=== PATIENT | male | born 1980 | race American Indian/Alaskan Native ===

== ENCOUNTER 2018-10-09 12:42 | Emergency (ER) | payer SELFPAY ==
--- NOTE | 2018-10-09 13:35 | Emergency Department Report ---
HPI - General Chief Complaint: Altered Mental Status Time Seen by Provider: 10/09/18 13:21 - HPI HPI: 47-year-old -[place] male presents to the emergency department via police department from a [employer] where the patient was acting altered a nd was aggressive towards one of the other patrons. Per the police, the patient actually grabbed a hold of one of the female patrons who was doing her laundry. The patient is currently altered and therefore a poor historian. The patient keeps repeating his name saying "I'm Deejay Maier." He also seems to be fixated with the police captain precinct present talking about and asking questions about nonspecific people shooting themselves in the face and committing suicide. The patient is not answering any questions regarding any past medical history, or any possible alcohol or illicit drug use. ED Past Medical Hx - Past Medical History Additional medical history: Unble to obtain, AMS - Surgical History Additional Surgical History: Unable to obtain, AMS - Social History Smoking Status: Current Every Day Smoker Substance Use Type: Alcohol ED Review of Systems ROS: Stated complaint: 1013 Other details as noted in HPI Comment: Unobtainable due to pts medical conditions Physical Exam - Physical Exam Vital Signs: Vital Signs 10/09/18 13:06 Temperature 98.6 F Pulse Rate 93 H Respiratory 18 Rate Blood Pressure 213/113 O2 Sat by Pulse 99 Oximetry Physical Exam: GENERAL: The patient is well-developed well-nourished. HEENT: Normocephalic. Atraumatic. Patient has moist mucous membranes. EYES: Extraocular motions are intact. Pupils are equal and reactive to light bilaterally. NECK: Supple. Trachea is midline. CHEST/LUNGS: Clear to auscultation. There is no respiratory distress noted. HEART/CARDIOVASCULAR: Regular. There is no tachycardia. There is no obvious murmur. ABDOMEN: Abdomen is soft, nontender. Patient has normal bowel sounds. There is no abdominal distention. SKIN: Skin is warm and dry. NEURO: The patient is awake but is not cooperative. No slurred speech. MUSCULOSKELETAL: There is no tenderness or deformity. There is no limitation range of motion. There is no evidence of acute injury. PSYCH: Patient has pressured speech. He displays tangential thoughts. He is not redirectable. He appears very agitated. ED Course Vital Signs 10/09/18 13:06 Temperature 98.6 F Pulse Rate 93 H Respiratory 18 Rate Blood Pressure 213/113 O2 Sat by Pulse 99 Oximetry ED Medical Decision Making - Lab Data Result diagrams: 10/09/18 13:25 10/09/18 13:25 - EKG Data -: EKG Interpreted by Me EKG shows normal: sinus rhythm, axis, intervals, QRS complexes (LVH), ST-T waves Rate: normal - EKG Data When compared to previous EKG there are: previous EKG unavailable Interpretation: LVH - Medical Decision Making Patient presents in police custody from a [facility] where the patient was d isplaying some psychosis and even some aggression and allegedly grabbed a hold of another patron there. Since being in the emergency department, the patient is awake but does display some agitation and psychosis here as well. He repeatedly will see his full name. He is attempting to have a conversation with the police captain precinct but the contents of this conversation do not make much sense and often he is very tangential and pressured speech. The patient became more agitated throughout his ED course at first and required some chemical restraints. Patient also presented with elevated blood pressure. His urine drug screen came back positive for cocaine, amphetamines and marijuana. I do believe that this is partly the reason for his current symptoms. Patient's blood count shows white blood cell count of 14,000. I believe this is reactive to his current psychotic, substance abused state. Patient also shows some elevation in his liver enzymes with AST almost 3 times greater than ALT and this may be secondary to alcohol use. Once the patient received the chemical restraints, his blood pressure came down to a much more reasonable level. He is currently a 1013 and awaiting psychiatric placement. Patient appears medically cleared for psychiatric placement. - Differential Diagnosis substance abuse, schizophrenia, schizoaffective, bipolar disorder Critical Care Time: No Critical care attestation.: If time is entered above; I have spent that time in minutes in the direct care of this critically ill patient, excluding procedure time. ED Disposition Clinical Impression: Polysubstance abuse, Acute psychosis Disposition: DC/TX-65 PSY HOSP/PSY UNIT Is pt being admited?: No Condition: Stable Time of Disposition: 18:42
[2018-10-09 13:40] LABS: Basophils # (Auto) 0.1 K/mm3 (0.0-0.1); Basophils % (Auto) 0.6 % (0.0-1.8); Eosinophils % (Auto) 0.2 % (0.0-4.3); Lymphocytes # (Auto) 2.5 K/mm3 (1.2-5.4); Lymphocytes % (Auto) 17.4 % (13.4-35.0); Mean Corpuscular HGB Conc 33 % (32-34); Mean Corpuscular Volume 80 fl (84-94); Monocytes # (Auto) 1.3 K/mm3 (0.0-0.8); Platelet Count 244 K/mm3 (140-440); Red Blood Count 4.99 M/mm3 (3.65-5.03); Red Cell Distribution Width 13.9 % (13.2-15.2)
[2018-10-09] MEDS ORDERED: D50W (25GM) Syringe IV ONE (13:48)
[2018-10-09] MEDS ORDERED: APRESOLINE IV ONE (13:48)
[2018-10-09 13:58] LABS: Bilirubin,Urine NEG (Negative); Blood,Urine NEG (Negative); Color,Urine Yellow (Yellow); Mucus,Urine 2+ /HPF
[2018-10-09 14:16] LABS: Benzodiazepines Screen,Urine PRESUMPTIVE NEGATIVE; Methadone Screen,Urine PRESUMPTIVE NEGATIVE; Opiate Screen,Urine PRESUMPTIVE NEGATIVE
[2018-10-09 14:18] LABS: Alanine Aminotransferase 69 units/L (7-56); Albumin 4.4 g/dL (3.9-5); BUN/Creatinine Ratio 14; Blood Urea Nitrogen 13 mg/dL (9-20); Calcium 9.3 mg/dL (8.4-10.2); Hemolysis Index 9
[2018-10-09 14:28] LABS: Amphetamine Screen,Urine PRESUMPTIVE POSITIVE; Cannabinoid Screen,Urine PRESUMPTIVE POSITIVE; Cocaine Screen,Urine PRESUMPTIVE POSITIVE
[2018-10-09] MEDS ORDERED: ATIVAN IV ONE (14:41)
[2018-10-09] MEDS ORDERED: GEODON IM ONE ×2 (15:49→15:53)
[2018-10-09] MEDS ORDERED: WATER FOR INJ Sterile (PF) 10 ML ONE (15:49)
--- NOTE | 2018-10-10 14:27 | Consultation ---
History of Present Illness - Reason for Consult Consult date: 10/10/18 Reason for consult: Initial Psychiatric Evaluation - Chief Complaint Chief complaint: " I had an altercation at my job." - History of Present Psychiatric Illness Patient is a 37-year-old male that presents to the emergency department via police department from a [employer] where the patient was acting altered and was aggressive towards one of the other patrons. Per the police, the patient actually grabbed a hold of one of the female patrons who was doing her laundry. The patient is currently altered and therefore a poor historian. Past denies past psychiatric history. Today the patient is cooperative but anxious during the assessment. He denies SI/HI's, A/VH's, and delusions. He reports alcohol and cocaine abuse. He last used cocaine/alcohol on 10-09-18. Upon arrival, patient endorses verbal aggressiveness. Currently, he denies agitation. Current Psychiatric Medications: Patient denies. Past Psychiatric History: Patient denies psychiatric diagnosis; [facility]; no outpatient psychiatrist; no previous suicide attempts. Past Psychiatric Medication Trials: Patient denies. History of Trauma/Abuse: Patient denies sexual, physical, and mental abuse. History of Drug/ Alcohol Abuse: UDS + marijuana, amphetamines, and cocaine. Cocaine- binge use, $20 dollars, " snort", last use 10-09-18, first use Age 18; Alcohol- 1 beer daily, " drink", last use 10-09-18, first use- age 14; methamphetamine- " I don't do meth. It probably was in a pill. " Social History: 11th grade- highest level of education; single; 1 son- age 17 in [place]; good support system- " the community and my job" Family History of Psychiatric Illness/ Substance Abuse: Patient denies. Medications and Allergies Allergies Allergy/AdvReac Type Severity Reaction Status Date / Time Unable to Assess Allergy Unverified 10/09/18 13:09 Mental Status Exam - Vital signs Last Vital Signs Temp 99.0 F 10/10/18 08:07 Pulse 106 H 10/10/18 08:07 Resp 20 10/10/18 08:07 BP 137/63 10/10/18 08:07 Pulse Ox 99 10/10/18 08:07 - Exam Narrative exam: Mental Status Exam Appearance: dressed- hospital gown Behavior: regular eye contact Speech: normal rate and tone Mood: " I feel great" Affect: Constricted Thought Process: circumstantial Thought Content: denies SI/HI's, A/VH's, and delusions Motor Activity: ambulatory Cognition: alert and oriented x 3 Insight: variable Judgment: variable Results Result Diagrams: 10/09/18 13:25 10/09/18 13:25 All other labs normal. Assessment and Plan Assessment and plan: Impression: Drug Induced Psychosis/Mood. Cocaine /Alcohol/Methamphetamine Use Disorder, moderate to severe. Today the patient is cooperative but anxious during the assessment. Patient denies SI/HI's, A/VH's, and delusions. No agitation noted. UDS positive for marijuana, cocaine, and methamphetamine. DDx: r/o Bipolar Disorer Recommendation/Plan: 1. Continue 1013. 2. Gain collateral to determine proper disposition. 3. Patient refuses medication. Patient prefer talk therapy. Discussed the risks/benefits to medication. Disposition: Patient is pending placement on [facility] 3. Will staff with Dr. Gillian Cornelius.
--- NOTE | 2018-10-11 14:53 | Progress Note ---
Subjective - Reason for Consult Consult date: 10/11/18 Reason for consult: Psychiatric Follow-up Evaluation - Chief Complaint Chief complaint: "I'm great" Patient is a 37-year-old male that presents to the emergency department via police department from a [employer] where the patient was acting altered and was aggressive towards one of the other patrons. Today the patient is calm and cooperative during the assessment. Patient denies SI/HI's, A/VH's, and delusions. He denies any periods of agitation. Currently, patient is interested in a rehabilitation program for drugs/alcohol. Mental Status Exam - Vital signs Last Vital Signs Temp 98.4 F 10/11/18 07:00 Pulse 54 L 10/11/18 07:00 Resp 16 10/11/18 07:00 BP 143/81 10/11/18 07:00 Pulse Ox 100 10/11/18 07:00 - Exam Narrative exam: Mental Status Exam Appearance: dressed- hospital gown Behavior: regular eye contact Speech: normal rate and tone Mood: " I feel great" Affect: Constricted Thought Process: circumstantial Thought Content: denies SI/HI's, A/VH's, and delusions Motor Activity: ambulatory Cognition: alert and oriented x 3 Insight: variable Judgment: variable Assessment and Plan Impression: Drug Induced Psychosis/Mood. Cocaine /Alcohol/Methamphetamine Use Disorder, moderate to severe. Today the patient is cooperative and calm during the assessment. He denies SI/HI's, A/VH's, and delusions. No agitation noted. UDS positive for marijuana, cocaine, and methamphetamine. DDx: r/o Bipolar Disorder Recommendation/Plan: 1. Will reevaluate 1013 in 24 hours to determine proper disposition. 2. Will gain collateral. 3. Patient refuses medication. Patient prefer talk therapy. Discussed the risks/benefits to medication. 4. Will monitor mood, psychosis, sleep, appetite, compliance, and withdrawal symptoms. Disposition: Patient referred to inpatient psychiatric services. Will staff with Dr. Gillian Cornelius.
[2018-10-12 07:47] VITALS: BP 126/82
--- NOTE | 2018-10-12 09:55 | Progress Note ---
Subjective - Reason for Consult Consult date: 10/12/18 Reason for consult: Psychiatry Follow-up - Chief Complaint Chief complaint: "I will do better" Patient is a 37-year-old male that presents to the emergency department via police department from a [employer] where the patient was acting altered and was aggressive towards one of the other patrons. Today the patient is calm and cooperative during the assessment. He stated that he is interested in rehab services. He stated that he plan to stop using "drugs" and consuming lots of alcohol (etoh). He denies SI/HI's and A/VH's. Per the staff, no behavioral disturbances overnight. Mental Status Exam - Vital signs Last Vital Signs Temp 98.5 F 10/12/18 07:46 Pulse 61 10/12/18 07:46 Resp 18 10/12/18 08:01 BP 126/82 10/12/18 07:46 Pulse Ox 99 10/12/18 07:46 - Exam Narrative exam: MSE: Appearance: calm, cooperative Behavior: regular eye contact Speech: regular rate and tone Mood: "better" Affect: congruent to mood Thought Process: linear Thought Content: denies SI/HI's and AVH's Motor Activity: sitting up in bed Cognition: A/O x 3 Insight: appropriate Judgment: appropriate Assessment and Plan Impression: Substance Induced Mood/Psychotic DO (Cocaine/Amphetamine). Cannabis Use DO. Today the patient is calm and cooperative during the assessment. The patient's psychosis have resolved. DDx: R/O Bipolar Disorder Recommendation/Plan: Rescind 1013. Discussed the importance to abstain from recreational druig use and alcohol consumption (etoh). Dispo: The patient can follow up at [facility] for outpatient rehab services. Will staff with Dr. Palacios.
--- NOTE | 2018-10-12 13:41 | Emergency Department Report ---
HPI - General Chief Complaint: Altered Mental Status Time Seen by Provider: 10/09/18 13:21 - HPI HPI: Patient was initially seen for agitation. he said he threatened his boss at work and he was sent to the emergency room to get psychiatric clearance. Patient is no longer agitated. He is calm now and he denies suicidal or homicidal ideation presently. Patient was seen by the psychiatric nurse practitioner Jin Pool Pyle who recommended discharging patient home with out patient follow up. Patient's urine was positive for marijuana and amphetamine in the ED. On my reevaluation today patient has No Medical Component currently. He Said he Is No Longer Angry with his boss and He Does Not Intend to do any harm to anyone. Plan: I Will Discharged him Home and he will be followed at the [facility] for Outpatient rehab services. No Medication was recommended by the Psychiatric nurse Practitioner. ED Past Medical Hx - Past Medical History Additional medical history: Unble to obtain, AMS - Surgical History Additional Surgical History: Unable to obtain, AMS - Social History Smoking Status: Current Every Day Smoker Substance Use Type: Alcohol - Medications Home Medications: Home Medications Medication Instructions Recorded Confirmed Last Taken Type No Known Home Medications [No 10/10/18 10/10/18 Unknown History Reported Home Medications] ED Review of Systems ROS: Stated complaint: 1013 Other details as noted in HPI Physical Exam - Physical Exam Vital Signs: Vital Signs 10/09/18 10/09/18 10/09/18 13:06 16:54 22:05 Temperature 98.6 F 97.6 F Pulse Rate 93 H 96 H 98 H Respiratory 18 16 18 Rate Blood Pressure 213/113 Blood Pressure 148/76 142/80 [Left] O2 Sat by Pulse 99 96 99 Oximetry 10/10/18 10/10/18 10/10/18 02:10 08:07 15:44 Temperature 98.6 F 99.0 F 97.7 F Pulse Rate 102 H 106 H 66 Respiratory 18 20 20 Rate Blood Pressure Blood Pressure 132/87 137/63 154/76 [Left] O2 Sat by Pulse 100 99 98 Oximetry 10/11/18 10/11/18 10/11/18 07:00 19:20 21:03 Temperature 98.4 F 97.5 F L Pulse Rate 54 L 71 Respiratory 16 18 18 Rate Blood Pressure Blood Pressure 143/81 145/91 [Left] O2 Sat by Pulse 100 100 100 Oximetry 10/12/18 10/12/18 10/12/18 02:13 07:46 08:01 Temperature 98.2 F 98.5 F Pulse Rate 64 61 Respiratory 16 18 18 Rate Blood Pressure Blood Pressure 141/90 126/82 [Left] O2 Sat by Pulse 99 99 Oximetry ED Course Vital Signs 10/09/18 10/09/18 10/09/18 13:06 16:54 22:05 Temperature 98.6 F 97.6 F Pulse Rate 93 H 96 H 98 H Respiratory 18 16 18 Rate Blood Pressure 213/113 Blood Pressure 148/76 142/80 [Left] O2 Sat by Pulse 99 96 99 Oximetry 10/10/18 10/10/18 10/10/18 02:10 08:07 15:44 Temperature 98.6 F 99.0 F 97.7 F Pulse Rate 102 H 106 H 66 Respiratory 18 20 20 Rate Blood Pressure Blood Pressure 132/87 137/63 154/76 [Left] O2 Sat by Pulse 100 99 98 Oximetry 10/11/18 10/11/18 10/11/18 07:00 19:20 21:03 Temperature 98.4 F 97.5 F L Pulse Rate 54 L 71 Respiratory 16 18 18 Rate Blood Pressure Blood Pressure 143/81 145/91 [Left] O2 Sat by Pulse 100 100 100 Oximetry 10/12/18 10/12/18 10/12/18 02:13 07:46 08:01 Temperature 98.2 F 98.5 F Pulse Rate 64 61 Respiratory 16 18 18 Rate Blood Pressure Blood Pressure 141/90 126/82 [Left] O2 Sat by Pulse 99 99 Oximetry ED Medical Decision Making - Lab Data Result diagrams: 10/09/18 13:25 10/09/18 13:25 Critical care attestation.: If time is entered above; I have spent that time in minutes in the direct care of this critically ill patient, excluding procedure time. ED Disposition Clinical Impression: Polysubstance abuse, Acute psychosis, Marijuana abuse, Amphetamine abuse Disposition: DC-01 TO HOME OR SELFCARE Is pt being admited?: No Does the pt Need Aspirin: No Condition: Stable Instructions: Medicinal Use of Cannabis (ED), Methamphetamine Abuse (ED) Additional Instructions: Please follow up at the [facility] for outpatient rehab services you have been referred to by the Psychiatric nurse practitioner earlier today. Return to the ED if your condition worsens. Referrals: PRIMARY CARE, [Primary Care Provider] - 3-5 Days Time of Disposition: 13:41
== END 2018-10-12 14:30 | disposition home or self-care (01) ==
LOC: ED 12:42 → EEVIPCON 12:42 → ED 10-12 14:30
DX: F23 Brief psychotic disorder (principal); F17.200 Nicotine dependence, unspecified, uncomplicated; F19.10 Other psychoactive substance abuse, uncomplicated
CPT/HCPCS: 36415; 80053; 80307; 81001; 82962; 84443; 85025; 93005; 93010; 96372; 96374; 96375; 99284; G0480; J0360; J2060; J3486; 80320

== ENCOUNTER 2020-06-13 12:05 | Inpatient (IN) | payer OTHER ==
--- NOTE | 2020-06-13 12:49 | Cat Scan Report ---
NONENHANCED CT SCAN OF THE HEAD: INDICATION / CLINICAL INFORMATION: 39 years Male; blurry vision, r sided numbness x 1 wk. TECHNIQUE: Routine CT head without contrast. All CT scans at this location are performed using CT dos e reduction for ALARA by means of automated exposure control. COMPARISON: None. FINDINGS: BRAIN / INTRACRANIAL CONTENTS: No acute hemorrhage, mass effect, midline shift, hydrocephalus, or ac chicken ranch, large territorial infarct. No chronic infarct or focal atrophy. Normal brain volume and ventricu lar/sulcal size for age. Periventricular low attenuation areas are seen probably due to small vessel disease. Vascular calcification is seen in the right middle cerebral artery. Beam hardening artifacts from the sphenoid ridge obscure the details of the left middle cranial fossa. 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 Please obtain contrast enhanced CT scan. CRANIOCERVICAL JUNCTION: No significant abnormality. ORBITS: No significant abnormality of visualized orbits. SINUSES / MASTOIDS: No significant abnormality of the visualized paranasal sinuses or mastoid air phuong ls. ADDITIONAL FINDINGS: None. IMPRESSION: No acute hemorrhage or acute parenchymal lesion Please obtain contrast enhanced CT scan to evaluate the middle cerebral arteries Signer Name: Caryl Bentley MD Signed: 06/13/2020 12:45 PM Workstation Name: [id number]
[2020-06-13 13:04] LABS: Basophils % (Auto) 0.4 % (0.0-1.8); Eosinophils # (Auto) 0.2 K/mm3 (0.0-0.4); Eosinophils % (Auto) 2.1 % (0.0-4.3); Hematocrit 44.5 % (35.5-45.6); Hemoglobin 14.5 gm/dl (11.8-15.2); Lymphocytes # (Auto) 3.1 K/mm3 (1.2-5.4); Lymphocytes % (Auto) 39.8 % (13.4-35.0); Mean Corpuscular HGB Conc 33 % (32-34); Mean Corpuscular Volume 81 fl (84-94); Monocytes # (Auto) 0.7 K/mm3 (0.0-0.8); Monocytes % (Auto) 8.8 % (0.0-7.3); Platelet Count 257 K/mm3 (140-440); Red Blood Count 5.49 M/mm3 (3.65-5.03); Red Cell Distribution Width 14.2 % (13.2-15.2)
[2020-06-13 13:18] LABS: Alanine Aminotransferase 25 units/L (7-56); Albumin 4.3 g/dL (3.9-5); BUN/Creatinine Ratio 8; Blood Urea Nitrogen 6 mg/dL (9-20); Calcium 9.2 mg/dL (8.4-10.2); Hemolysis Index 10
--- NOTE | 2020-06-13 15:06 | Emergency Department Report ---
HPI - General Chief Complaint: Neuro Symptoms/Deficit Time Seen by Provider: 06/13/20 14:22 - HPI HPI: This is a 39-year-old -[place] male who presents to the emergency department with a complaint of some right-sided numbness and blurry vision that has been going on for the past few days. The patient also said he had some episodes of this last week that went away and has since returned. Patient says that he feels like "I cannot get my eyes to uncross." This is also associated with some dizziness. It is gotten to the point where the patient is having difficulty walking around as he feels unbalanced. He denies any past medical history. He does not have a primary care physician. He is a tobacco smoker but denies any illicit drug use. No recent travel or sick contacts at home. He has not taken anything for his symptoms prior to presentation. ED Past Medical Hx - Past Medical History Previous Medical History?: No Additional medical history: Unble to obtain, AMS - Surgical History Past Surgical History?: No Additional Surgical History: Unable to obtain, AMS - Social History Smoking Status: Never Smoker Substance Use Type: None - Medications Home Medications: Home Medications Medication Instructions Recorded Confirmed Last Taken Type No Known Home Medications [No 10/10/18 10/10/18 Unknown History Reported Home Medications] ED Review of Systems ROS: Stated complaint: WEAKNESS, BLURRY VISION, NUMBINESS Other details as noted in HPI Comment: All other systems reviewed and negative Constitutional: denies: chills, fever Eyes: vision change. denies: eye pain, eye discharge ENT: denies: ear pain, throat pain Respiratory: denies: cough, shortness of breath Cardiovascular: denies: chest pain, palpitations Gastrointestinal: denies: abdominal pain, vomiting Genitourinary: denies: dysuria, discharge Musculoskeletal: denies: back pain, arthralgia Skin: denies: rash, lesions Neurological: numbness, other (dizziness) Physical Exam - Physical Exam Vital Signs: Vital Signs 06/13/20 12:07 Temperature 98.3 F Pulse Rate 57 L Respiratory 16 Rate Blood Pressure 170/96 [Left] O2 Sat by Pulse 96 Oximetry Physical Exam: GENERAL: The patient is well-developed well-nourished. HENT: Normocephalic. Atraumatic. Patient has moist mucous membranes. EYES: There is vertical and rotary nystagmus with superior/inferior extraocular motion. There is some rotary nystagmus with lateral motion but the patient cannot maintain a lateral gaze as the eyes suddenly move inferior and medial causing diplopia. Pupils equal reactive to light bilaterally. NECK: Supple. Trachea is midline. CHEST/LUNGS: Clear to auscultation. There is no respiratory distress noted. HEART/CARDIOVASCULAR: Regular. There is no tachycardia. There is no murmur. ABDOMEN: Abdomen is soft, nontender. Patient has normal bowel sounds. There is no abdominal distention. SKIN: Skin is warm and dry. NEURO: The patient is awake, alert, and oriented. The patient is cooperative. Mild subjective right upper extremity decreased sensation when compared to the left. Normal speech. MUSCULOSKELETAL: There is no tenderness or deformity. There is no limitation range of motion. ED Course Vital Signs 06/13/20 12:07 Temperature 98.3 F Pulse Rate 57 L Respiratory 16 Rate Blood Pressure 170/96 [Left] O2 Sat by Pulse 96 Oximetry - Reevaluation(s) Reevaluation #1: 06/13/20 18:43 Lab Results 06/13/20 06/13/20 06/13/20 Range/Units 12:26 12:33 12:33 WBC 7.7 (4.5-11.0) K/mm3 RBC 5.49 H (3.65-5.03) M/mm3 Hgb 14.5 (11.8-15.2) gm/dl Hct 44.5 (35.5-45.6) % MCV 81 L (84-94) fl MCH 26 L (28-32) pg MCHC 33 (32-34) % RDW 14.2 (13.2-15.2) % Plt Count 257 (140-440) K/mm3 Lymph % (Auto) 39.8 H (13.4-35.0) % [place] % (Auto) 8.8 H (0.0-7.3) % Eos % (Auto) 2.1 (0.0-4.3) % Baso % (Auto) 0.4 (0.0-1.8) % Lymph # 3.1 (1.2-5.4) K/mm3 [place] # 0.7 (0.0-0.8) K/mm3 Eos # 0.2 (0.0-0.4) K/mm3 Baso # 0.0 (0.0-0.1) K/mm3 Seg Neutrophils % 48.9 (40.0-70.0) % Seg Neutrophils # 3.8 (1.8-7.7) K/mm3 Sodium 138 (137-145) mmol/L Potassium 3.9 (3.6-5.0) mmol/L Chloride 102.4 (98-107) mmol/L Carbon Dioxide 21 L (22-30) mmol/L Anion Gap 19 mmol/L BUN 6 L (9-20) mg/dL Creatinine 0.8 (0.8-1.3) mg/dL Estimated GFR > 60 ml/min BUN/Creatinine Ratio 8 % Glucose 133 H (75-100) mg/dL POC Glucose 122 H (70-105) Calcium 9.2 (8.4-10.2) mg/dL Total Bilirubin 0.70 (0.1-1.2) mg/dL AST 31 (5-40) units/L ALT 25 (7-56) units/L Alkaline Phosphatase 93 (35-129) units/L Total Protein 7.4 (6.3-8.2) g/dL Albumin 4.3 (3.9-5) g/dL Albumin/Globulin Ratio 1.4 % TSH (0.270-4.200) mlU/mL Free T4 (0.76-1.46) ng/dL Plasma/Serum Alcohol (0-0.07) % 06/13/20 06/13/20 Range/Units 15:11 15:51 WBC (4.5-11.0) K/mm3 RBC (3.65-5.03) M/mm3 Hgb (11.8-15.2) gm/dl Hct (35.5-45.6) % MCV (84-94) fl MCH (28-32) pg MCHC (32-34) % RDW (13.2-15.2) % Plt Count (140-440) K/mm3 Lymph % (Auto) (13.4-35.0) % [place] % (Auto) (0.0-7.3) % Eos % (Auto) (0.0-4.3) % Baso % (Auto) (0.0-1.8) % Lymph # (1.2-5.4) K/mm3 [place] # (0.0-0.8) K/mm3 Eos # (0.0-0.4) K/mm3 Baso # (0.0-0.1) K/mm3 Seg Neutrophils % (40.0-70.0) % Seg Neutrophils # (1.8-7.7) K/mm3 Sodium (137-145) mmol/L Potassium (3.6-5.0) mmol/L Chloride (98-107) mmol/L Carbon Dioxide (22-30) mmol/L Anion Gap mmol/L BUN (9-20) mg/dL Creatinine (0.8-1.3) mg/dL Estimated GFR ml/min BUN/Creatinine Ratio % Glucose (75-100) mg/dL POC Glucose (70-105) Calcium (8.4-10.2) mg/dL Total Bilirubin (0.1-1.2) mg/dL AST (5-40) units/L ALT (7-56) units/L Alkaline Phosphatase (35-129) units/L Total Protein (6.3-8.2) g/dL Albumin (3.9-5) g/dL Albumin/Globulin Ratio % TSH 0.554 (0.270-4.200) mlU/mL Free T4 1.12 (0.76-1.46) ng/dL Plasma/Serum Alcohol < 0.01 (0-0.07) % ED Medical Decision Making - Lab Data Result diagrams: 06/13/20 12:33 06/13/20 12:33 - Radiology Data Radiology results: report reviewed NONENHANCED CT SCAN OF THE HEAD: INDICATION / CLINICAL INFORMATION: 39 years Male; blurry vision, r sided numbness x 1 wk. TECHNIQUE: Routine CT head without contrast. All CT scans at this location are performed using CT dose reduction for ALARA by means of automated exposure control. COMPARISON: None. FINDINGS: BRAIN / INTRACRANIAL CONTENTS: No acute hemorrhage, mass effect, midline shift, hydrocephalus, or acute, large territorial infarct. No chronic infarct or focal atrophy. Normal brain volume and ventricular/sulcal size for age. Periventricular low attenuation areas are seen probably due to small vessel disease. Vascular calcification is seen in the right middle cerebral artery. Beam hardening artifacts from the sphenoid ridge obscure the details of the left middle cranial fossa. This is a subtle finding adjacent to the left middle cerebral artery trifurcation. Please obtain contrast enhanced CT scan. CRANIOCERVICAL JUNCTION: No significant abnormality. ORBITS: No significant abnormality of visualized orbits. SINUSES / MASTOIDS: No significant abnormality of the visualized paranasal sinuses or mastoid air cells. ADDITIONAL FINDINGS: None. IMPRESSION: No acute hemorrhage or acute parenchymal lesion CTA HEAD WITH CONTRAST HISTORY: Blurred vision; right-sided numbness COMPARISON: None. TECHNIQUE: Routine non-contrast CT Head, CTA of the head and post- contrast CT Head are performed. 3-D/MIP reformats postprocessed. All CT scans at this location are performed using CT dose reduction for ALARA by means of automated exposure control CONTRAST: 100 ml of Omnipaque 350 FINDINGS: CTA Head: Intracranial vertebral arteries: No significant abnormality. Origin of right PICA normal. Basilar artery: No significant abnormality. Posterior cerebral arteries: No significant abnormality. Intracranial internal carotid arteries: No significant abnormality. Anterior cerebral arteries: Both A1 segments are nor mal. Approximately 50% stenosis seen in the left pericallosal artery. Middle cerebral arteries: No significant abnormality. Dural venous sinuses:Not optimally opacified. No significant abnormality. Additional findings: None. IMPRESSION: Approximately 50% stenoses in the left pericallosal artery [place] and both middle cerebral artery division are normal. CTA neck without and with intravenous contrast material CLINICAL HISTORY: blurred vision, right sided numbness TECHNIQUE: Following acquisition of a timing bolus 0.625 mm thick contiguous axial scans were obtained from aortic arch to the skull base during rapid bolus intravenous contrast infusion. In addition to evaluation of axial source images multiplanar reconstructions were produced and reviewed for this report. 3 plane MIP reconstructions were produced and reviewed. Contrast dose report: Omnipaque 350: 100 ml, administered intravenously All CT examinations performed at this facility utilize modulated dose reduction, iterative reconstruction or weight-based dosing, as appropriate, to obtain a radiation dose which is as low as can reasonably be achieved. FINDINGS: Thoracic aorta: Incidental note is made of a common origin of the brachiocephalic artery and left common carotid artery. This is a common normal anatomical variation. No significant abnormalities are identified along the c ourse of the thoracic aorta..The origins of the great vessels have an unremarkable appearance. Brachiocephalic artery, left common carotid artery origin and left subclavian artery all have an unremarkable appearance. Right carotid artery:No abnormalities are seen along the course of the RCCA, at the right carotid bifurcation or along the cervical portions of the CULLEN. Left carotid artery: No abnormalities are noted along the course of the left common carotid artery, at the left carotid bifurcation or along the course of the cervical segments of the LICA. Posterior circulation: Left vertebral artery is dominant. Both vertebral arteries contribute to the basilar artery origin. The basilar artery has an unremarkable appearance. The degree of stenosis, if any, is determined utilizing NASCET like criteria. In this case there is no indication of hemodynamically significant stenosis at the carotid bifurcations or elsewhere. Evaluation of the nonvascular soft tissue structures reveal no abnormality. There is no indication of cervical lymphadenopathy. No abnormalities are seen along the course of the airway. Visualized portions of the parotid glands and the submandibular salivary glands have a normal appearance. Thyroid gland has a normal appearance. Evaluation of the lung apices reveals no evidence of lung nodule or infiltrate. Evaluation of the cervical spine revealed no significant abnormalities. IMPRESSION: 1. Normal CTA neck. - Medical Decision Making This patient presents with a complaint of some right-sided numbness, weakness, vision change. On examination the patient has abnormal extraocular motion causing diplopia. He has horizontal and rotary nystagmus that is not fatigable that appears consistent with a central nystagmus. Patient is unable to hold a lateral gaze as his eyes will move inferio-medial. There is also some subj ective decrease sensation to the right arm when compared to the left. CT of the head did not show any acute bleed, shift, mass, ischemia, large vessel occlusion, or any other acute process. The patient was seen by the telemedicine neurologist who feels that this is consistent with an ischemic small vessel CVA or some type of demyelinating nerve disease. CT angiography of the head and neck did not show any occlusion or thrombus. Patient's labs have been mostly unremarkable and do not explain the patient's symptoms. He will be admitted to the hospital for further evaluation and treatment and was accepted for admission by the hospitalist, Dr. Solo. Critical Care Time: No Critical care attestation.: If time is entered above; I have spent that time in minutes in the direct care of this critically ill patient, excluding procedure time. ED Disposition Clinical Impression: Hypertension, Vertical nystagmus Stroke Qualifiers: CVA mechanism: unspecified Qualified Code(s): I63.9 - Cerebral infarction, unspecified Disposition: DC-09 OP ADMIT IP TO THIS HOSP Is pt being admited?: Yes Condition: Serious Time of Disposition: 18:49
--- NOTE | 2020-06-13 15:14 | Emergency Department Report ---
HPI - General Chief Complaint: Neuro Symptoms/Deficit Time Seen by Provider: 06/13/20 14:22 - HPI HPI: [facility] TeleNeurology Consult Services Stat Consult Date of Service: 06/13/2020 14:39:23 Impression: Rule Out Acute Ischemic Stroke Comments/Sign-Out: Pt was noted to have a rt eye saccade latency while looking to the left, pronounced dipopia on left gaze and non fatiguable vertical nystagmus on upgaze. Pts symptoms are indicative of central nystagmus. Cheif differentials include: small vessel ischemic stroke and demyelinating process CT HEAD: Showed No Acute Hemorrhage or Acute Core Infarct Metrics: [facility] Notification Time: 06/13/2020 14:37:56 Stamp Time: 06/13/2020 14:39:23 Callback Response Time: 06/13/2020 14:42:18 Video Start Time: 06/13/2020 15:11:56 Video End Time: 06/13/2020 15:11:57 Our recommendations are outlined below. Recommendations: Antiplatelet Therapy MRI cervical spine wwo Imaging Studies: MRI Head with and Without Contrast MRA Neck with and Without Contrast Echocardiogram - Transthoracic Echocardiogram Therapies: Physical Therapy, Occupational Therapy, Speech Therapy Assessment When Applicable Other WorkUp: Infectious/metabolic workup per primary team Disposition: Neurology Follow Up Recommended Sign Out: Discussed with Emergency Department Provider Chief Complaint: Double vision History of Present Illness: Patient is a 39 year old Male. 39 yo M No significant PMHx Pt says that a few days back he had a fall while asleep following which over the last few days c/o right sided weakness, blurry vision, vertical nystagmus, CT head negative Past Medical History: Examination: 1A: Level of Consciousness - Alert; keenly responsive + 0 1B: Ask Month and Age - Both Questions Right + 0 1C: Blink Eyes & Squeeze Hands - Performs Both Tasks + 0 2: Test Horizontal Extraocular Movements - Partial Gaze Palsy: Can Be Overcome + 1 3: Test Visual Ace - No Visual Loss + 0 4: Test Facial Palsy (Use Grimace if Obtunded) - Normal symmetry + 0 5A: Test Left Arm Motor Drift - No Drift for 10 Seconds + 0 5B: Test Right Arm Motor Drift - Drift, but doesn't hit bed + 1 6A: Test Left Leg Motor Drift - No Drift for 5 Seconds + 0 6B: Test Right Leg Motor Drift - No Drift for 5 Seconds + 0 7: Test Limb Ataxia (FNF/Heel-Ramires) - No Ataxia + 0 8: Test Sensation - Normal; No sensory loss + 0 9: Test Language/Aphasia - Normal; No aphasia + 0 10: Test Dysarthria - Normal + 0 11: Test Extinction/Inattention - No abnormality + 0 NIHSS Score: 2 Patient/Family was informed the Neurology Consult would happen via TeleHealth consult by way of interactive audio and video telecommunications and consented to receiving care in this manner. Due to the immediate potential for life-threatening deterioration due to underlying acute neurologic illness, I spent 35 minutes providing critical care. This time includes time for face to face visit via telemedicine, review of medical records, imaging studies and discussion of findings with providers, the patient and/or family. Dr Danyelle Rodriguez [facility] Case [id number] ED Past Medical Hx - Past Medical History Previous Medical History?: No Additional medical history: Unble to obtain, AMS - Surgical History Past Surgical History?: No Additional Surgical History: Unable to obtain, AMS - Social History Smoking Status: Never Smoker Substance Use Type: None - Medications Home Medications: Home Medications Medication Instructions Recorded Confirmed Last Taken Type No Known Home Medications [No 10/10/18 10/10/18 Unknown History Reported Home Medications] ED Review of Systems ROS: Stated complaint: WEAKNESS, BLURRY VISION, NUMBINESS Other details as noted in HPI Constitutional: denies: chills, fever Eyes: vision change. denies: eye pain, eye discharge ENT: denies: ear pain, throat pain Respiratory: denies: cough, shortness of breath Cardiovascular: denies: chest pain, palpitations Gastrointestinal: denies: abdominal pain, vomiting Genitourinary: denies: dysuria, discharge Musculoskeletal: denies: back pain, arthralgia Skin: denies: rash, lesions Neurological: numbness, other (dizziness) Physical Exam - Physical Exam Vital Signs: Vital Signs 06/13/20 12:07 Temperature 98.3 F Pulse Rate 57 L Respiratory 16 Rate Blood Pressure 170/96 [Left] O2 Sat by Pulse 96 Oximetry ED Course Vital Signs 06/13/20 12:07 Temperature 98.3 F Pulse Rate 57 L Respiratory 16 Rate Blood Pressure 170/96 [Left] O2 Sat by Pulse 96 Oximetry ED Medical Decision Making - Lab Data Result diagrams: 06/13/20 12:33 06/13/20 12:33 Critical care attestation.: If time is entered above; I have spent that time in minutes in the direct care of this critically ill patient, excluding procedure time. ED Disposition Clinical Impression: Stroke Disposition: DC-09 OP ADMIT IP TO THIS HOSP Is pt being admited?: Yes Does the pt Need Aspirin: Yes Condition: Stable Referrals: PRIMARY CARE, [Primary Care Provider] - 3-5 Days
[2020-06-13] MEDS ORDERED: ASPIRIN 81 MG TAB CHEW PO ONE (15:31)
--- NOTE | 2020-06-13 16:07 | Cat Scan Report ---
CTA HEAD WITH CONTRAST HISTORY: Blurred vision; right-sided numbness COMPARISON: None. TECHNIQUE: Routine non-contrast CT Head, CTA of the head and post-contrast CT Head are performed. 3-D /MIP reformats postprocessed. All CT scans at this location are performed using CT dose reduction for ALARA by means of automated exposure control CONTRAST: 100 ml of Omnipaque 350 FINDINGS: CTA Head: Intracranial vertebral arteries: No significant abnormality. Origin of right PICA normal. Basilar artery: No significant abnormality. Posterior cerebral arteries: No significant abnormality. Intracranial internal carotid arteries: No significant abnormality. Anterior cerebral arteries: Both A1 segments are normal. Approximately 50% stenosis seen in the left pericallosal artery. Middle cerebral arteries: No significant abnormality. Dural venous sinuses:Not optimally opacified. No significant abnormality. Additional findings: None. IMPRESSION: Approximately 50% stenoses in the left pericallosal artery [place] of [place] and both middle cerebral artery division are normal. Signer Name: Caryl Bentley MD Signed: 06/13/2020 4:03 PM Workstation Name: [id number]
[2020-06-13 16:13] LABS: Free T4 (Free Thyroxine) 1.12 ng/dL (0.76-1.46)
--- NOTE | 2020-06-13 16:38 | Cat Scan Report ---
CTA neck without and with intravenous contrast material CLINICAL HISTORY: blurred vision, right sided numbness TECHNIQUE: Following acquisition of a timing bolus 0.625 mm thick contiguous axial scans were obtained from aort ic arch to the skull base during rapid bolus intravenous contrast infusion. In addition to evaluation of axial source images multiplanar reconstructions were produced and reviewed for this report. 3 zabrina ne MIP reconstructions were produced and reviewed. Contrast dose report: Omnipaque 350: 100 ml, administered intravenously All CT examinations performed at this facility utilize modulated dose reduction, iterative reconstruc tion or weight-based dosing, as appropriate, to obtain a radiation dose which is as low as can reason ably be achieved. FINDINGS: Thoracic aorta: Incidental note is made of a common origin of the brachiocephalic artery and left com mon carotid artery. This is a common normal anatomical variation. No significant abnormalities are id entified along the course of the thoracic aorta..The origins of the great vessels have an unremarkabl e appearance. Brachiocephalic artery, left common carotid artery origin and left subclavian artery al l have an unremarkable appearance. Right carotid artery:No abnormalities are seen along the course of the RCCA, at the right carotid bif urcation or along the cervical portions of the CULLEN. Left carotid artery: No abnormalities are noted along the course of the left common carotid artery, a t the left carotid bifurcation or along the course of the cervical segments of the LICA. Posterior circulation: Left vertebral artery is dominant. Both vertebral arteries contribute to the b asilar artery origin. The basilar artery has an unremarkable appearance. The degree of stenosis, if any, is determined utilizing NASCET like criteria. In this case there is no indication of hemodynamically significant stenosis at the carotid bifurcations or elsewhere. Evaluation of the nonvascular soft tissue structures reveal no abnormality. There is no indication of cervical lymphadenopathy. No abnormalities are seen along the course of the airway. Visualized porti ons of the parotid glands and the submandibular salivary glands have a normal appearance. Thyroid gla nd has a normal appearance. Evaluation of the lung apices reveals no evidence of lung nodule or infil trate. Evaluation of the cervical spine revealed no significant abnormalities. IMPRESSION: 1. Normal CTA neck. Signer Name: Ty Lynn MD Signed: 06/13/2020 4:34 PM Workstation Name: [id number]
[2020-06-13] MEDS ORDERED: methylPREDNISolone Sod Succinate 125 MG/2 ML INJ IV ONE (17:09)
--- NOTE | 2020-06-13 17:10 | History and Physical Report ---
History of Present Illness Chief complaint: I cant walk right, my vision is blurry History of present illness: 39 YO Male with Cocaine Dependence, Nicotine Dependence presents to ED for evaluation. Patient states that he has experienced blurred vision, difficulty with ambulation, and "I cannot get my eyes to uncross" for the past week. Patient states that he presents for evaluation at the insistence of his girlfri end. Patient acknowledges intermittent cocaine ingestion over the past week. Patient transported to [facility] via private vehicle for further care and evaluation of the aforementioned symptoms. Patient seen and evaluated in the emergency department. Lab and imaging studies reviewed. Tele-neurology consulted. Pt found to have Central Nystagmus, as well as symptoms consistent with Demyelinating Neuropathy, as well as small vessel ischemia. Pt placed in observation status and admitted to medical floor. Neurology consulted in ED. Patient denies fever, chills, headache, syncope, vertigo, trauma, chest pain, palpitation, productive cough, loss of bowel or bladder continence, skin rash, recent ill contacts, or known exposure to COVID-19. No prior admission for review. No medication listed for reconciliation at time of admission. Past History Past Medical History: other (See HPI) Past Surgical History: No surgical history, Other (Reviewed) Social history: single, smoking. denies: alcohol abuse, prescription drug abuse Family history: hypertension Medications and Allergies Allergies Allergy/AdvReac Type Severity Reaction Status Date / Time No Known Allergies Allergy Verified 06/13/20 12:07 Home Medications Medication Instructions Recorded Confirmed Last Taken Type No Known Home Medications [No 10/10/18 10/10/18 Unknown History Reported Home Medications] Active Meds: Active Medications Methylprednisolone Sodium Succinate (Solu-Medrol) 125 mg IV ONCE ONE Stop: 06/13/20 17:10 Review of Systems Constitutional: no weight loss, no weight gain, no fever, no chills Eyes: bilateral: blurred vision Ears, nose, mouth and throat: no ear pain, no ear discharge, no tinnitis, no decreased hearing, no nose pain Cardiovascular: no chest pain, no orthopnea, no palpitations, no rapid/irregular heart beat, no edema, no syncope Respiratory: no cough, no hemoptysis, no shortness of breath Gastrointestinal: no abdominal pain, no nausea, no diarrhea, no constipation, no change in bowel habits Genitourinary Male: no dysuria, no hematuria, no flank pain, no discharge, no urinary frequency, no urinary hesitancy Rectal: no pain, no incontinence, no bleeding Musculoskeletal: no neck stiffness, no neck pain, no shooting arm pain, no arm numbness/tingling, no shooting leg pain, no redness of joints Integumentary: no rash, no pruritis, no redness, no sores, no wounds Neurological: other (Blurred vision, dizziness, wide-based gait), no transient paralysis, no paralysis, no weakness, no parathesias, no vertigo, no headaches Psychiatric: no anxiety, no memory loss, no sleep disturbances, no insomnia, no hypersomnia, no change in libido, no disorientation Endocrine: no cold intolerance, no heat intolerance, no polyphagia, no excessive thirst, no polydipsia, no polyuria, no nocturia, no excessive sweating, no flushing Hematologic/Lymphatic: no easy bruising, no easy bleeding, no lymphadenopathy, no lymphedema Allergic/Immunologic: no urticaria, no allergic rhinitis, no persistent infections, no anaphylaxis Exam - Constitutional Vitals: Temp Pulse Resp BP Pulse Ox 98.3 F 48 L 15 170/96 98 06/13/20 12:07 06/13/20 16:00 06/13/20 16:00 06/13/20 12:07 06/13/20 16:00 General appearance: Present: mild distress - EENT Eyes: Present: PERRL (Nystagmus,) ENT: hearing intact, clear oral mucosa - Neck Neck: Present: supple, normal ROM - Respiratory Respiratory effort: normal Respiratory: bilateral: CTA - Cardiovascular Heart Sounds: Present: S1 & S2. Absent: rub, click - Extremities Extremities: pulses symmetrical, No edema Peripheral Pulses: within normal limits - Abdominal General gastrointestinal: Present: soft, non-tender, non-distended, normal bowel sounds Male genitourinary: Present: normal - Integumentary Integumentary: Present: clear, warm, dry - Musculoskeletal Musculoskeletal: gait normal, strength equal bilaterally - Psychiatric Psychiatric: appropriate mood/affect, intact judgment & insight - Neurologic Neurologic: CNII-XII intact, moves all extremities Results - Labs CBC & Chem 7: 06/13/20 12:33 06/13/20 12:33 Labs: Abnormal lab results 06/13/20 06/13/2020 Range/Units 12:26 12:33 12:33 RBC 5.49 H (3.65-5.03) M/mm3 MCV 81 L (84-94) fl MCH 26 L (28-32) pg Lymph % (Auto) 39.8 H (13.4-35.0) % [place] % (Auto) 8.8 H (0.0-7.3) % Carbon Dioxide 21 L (22-30) mmol/L BUN 6 L (9-20) mg/dL Glucose 133 H (75-100) mg/dL POC Glucose 122 H (70-105) Assessment and Plan - Patient Problems (1) Demyelinating neuropathy Current Visit: Yes Status: Acute Plan to address problem: CT head, tele-neurology consulted, neurology consulted, empiric IV steroid therapy, supportive care, neuro check, seizure precaution, aspiration p recautions (2) Nicotine dependence Current Visit: Yes Status: Acute Qualifiers: Nicotine product type: cigarettes Substance use status: in withdrawal Qualified Code(s): F17.213 - Nicotine dependence, cigarettes, with withdrawal Plan to address problem: Supportive care, behavior change counseling, +15 minutes. (3) Cocaine dependence Current Visit: Yes Status: Acute Qualifiers: Substance use status: uncomplicated Qualified Code(s): F14.20 - Cocaine dependence, uncomplicated Plan to address problem: Outpatient substance dependence counseling follow-up. (4) DVT prophylaxis Current Visit: Yes Status: Acute Plan to address problem: SCD to bilateral lower extremities while in bed, patient is ambulatory.
[2020-06-13] MEDS ORDERED: ACETAMINOPHEN 325 MG TAB PO PRN (18:43)
[2020-06-13] MEDS ORDERED: ONDANSETRON 4 MG/2 ML INJ IV PRN (18:43)
[2020-06-13 19:44] LABS: Bilirubin,Urine NEG (Negative); Blood,Urine NEG (Negative); Color,Urine Yellow (Yellow); Mucus,Urine FEW /HPF; Protein,Urine <15 mg/dL mg/dL (Negative); Urobilinogen,Urine < 2.0 mg/dL (<2.0); WBC,Urine < 1.0 /HPF (0.0-6.0)
[2020-06-13 19:51] LABS: Amphetamine Screen,Urine PRESUMPTIVE NEGATIVE; Benzodiazepines Screen,Urine PRESUMPTIVE NEGATIVE; Cannabinoid Screen,Urine PRESUMPTIVE NEGATIVE; Cocaine Screen,Urine PRESUMPTIVE POSITIVE; Methadone Screen,Urine PRESUMPTIVE NEGATIVE; Opiate Screen,Urine PRESUMPTIVE NEGATIVE
[2020-06-13] MEDS ORDERED: methylPREDNISolone Sod Succinate 125 MG/2 ML INJ ONE (20:39)
[2020-06-14 05:36] LABS: BUN/Creatinine Ratio 11; Blood Urea Nitrogen 11 mg/dL (9-20); Calcium 9.8 mg/dL (8.4-10.2); Hemolysis Index 15
--- NOTE | 2020-06-14 12:21 | Progress Note ---
Assessment and Plan - Patient Problems (1) Demyelinating neuropathy Current Visit: Yes Status: Acute Plan to address problem: CT head reviewed, tele-neurology consulted, neurology consulted, further imaging studies as per neurology team, empiric IV steroid therapy, supportive care, neuro check, seizure precaution, aspiration precautions (2) Nicotine dependence Current Visit: Yes Status: Acute Qualifiers: Nicotine product type: cigarettes Substance use status: in withdrawal Qualified Code(s): F17.213 - Nicotine dependence, cigarettes, with withdrawal Plan to address problem: Supportive care, behavior change counseling, +15 minutes. (3) Cocaine dependence Current Visit: Yes Status: Acute Qualifiers: Substance use status: uncomplicated Qualified Code(s): F14.20 - Cocaine dependence, uncomplicated Plan to address problem: Outpatient substance dependence counseling follow-up. (4) DVT prophylaxis Current Visit: Yes Status: Acute Plan to address problem: SCD to bilateral lower extremities while in bed, patient is ambulatory. History Interval history: 39 YO Male HD #2 with Central Nystagmus, Demyelinating Neuropathy complicated by impaired vision and gait instability. Pt denies worsening symptoms overnight. Patient continues to acknowledge blurred vision and wide-based gait. Patient denies seizure, loss of bowel continence, loss of bladder continence, loss of c onsciousness. No reported nursing events. Patient resting comfortably Hospitalist Physical - Constitutional Vitals: Temp Pulse Resp BP Pulse Ox 98.6 F 66 16 145/84 99 06/14/20 03:47 06/14/20 03:47 06/14/20 03:47 06/14/20 03:47 06/14/20 08:44 General appearance: Present: mild distress - EENT Eyes: Absent: EOM intact (Nystagmus) ENT: hearing intact - Neck Neck: Present: supple - Respiratory Respiratory effort: normal Respiratory: bilateral: CTA - Cardiovascular Rhythm: regular Heart Sounds: Present: S1 & S2 - Extremities Extremities: no ischemia Peripheral Pulses: within normal limits - Abdominal General gastrointestinal: soft, non-tender, non-distended - Integumentary Integumentary: Present: clear, dry - Psychiatric Psychiatric: appropriate mood/affect, cooperative - Neurologic Neurologic: no focal deficits, moves all extremities, no gait normal Results - Labs CBC & Chem 7: 06/13/20 12:33 06/14/20 04:27 Labs: Laboratory Last Values WBC 7.7 K/mm3 (4.5-11.0) 06/13/20 12:33 RBC 5.49 M/mm3 (3.65-5.03) H 06/13/20 12:33 Hgb 14.5 gm/dl (11.8-15.2) 06/13/20 12:33 Hct 44.5 % (35.5-45.6) 06/13/20 12:33 MCV 81 fl (84-94) L 06/13/20 12:33 MCH 26 pg (28-32) L 06/13/20 12:33 MCHC 33 % (32-34) 06/13/20 12:33 RDW 14.2 % (13.2-15.2) 06/13/20 12:33 Plt Count 257 K/mm3 (140-440) 06/13/20 12:33 Lymph % (Auto) 39.8 % (13.4-35.0) H 06/13/20 12:33 [place] % (Auto) 8.8 % (0.0-7.3) H 06/13/20 12:33 Eos % (Auto) 2.1 % (0.0-4.3) 06/13/20 12:33 Baso % (Auto) 0.4 % (0.0-1.8) 06/13/20 12:33 Lymph # 3.1 K/mm3 (1.2-5.4) 06/13/20 12:33 [place] # 0.7 K/mm3 (0.0-0.8) 06/13/20 12:33 Eos # 0.2 K/mm3 (0.0-0.4) 06/13/20 12:33 Baso # 0.0 K/mm3 (0.0-0.1) 06/13/20 12:33 Seg Neutrophils % 48.9 % (40.0-70.0) 06/13/20 12:33 Seg Neutrophils # 3.8 K/mm3 (1.8-7.7) 06/13/20 12:33 Sodium 138 mmol/L (137-145) 06/14/20 04:27 Potassium 4.5 mmol/L (3.6-5.0) 06/14/20 04:27 Chloride 100.6 mmol/L (98-107) 06/14/20 04:27 Carbon Dioxide 22 mmol/L (22-30) 06/14/20 04:27 Anion Gap 20 mmol/L 06/14/20 04:27 BUN 11 mg/dL (9-20) 06/14/20 04:27 Creatinine 1.0 mg/dL (0.8-1.3) 06/14/20 04:27 Estimated GFR > 60 ml/min 06/14/20 04:27 BUN/Creatinine Ratio 11 % 06/14/20 04:27 Glucose 180 mg/dL (75-100) H 06/14/20 04:27 POC Glucose 122 (70-105) H 06/13/20 12:26 Calcium 9.8 mg/dL (8.4-10.2) 06/14/20 04:27 Total Bilirubin 0.70 mg/dL (0.1-1.2) 06/13/20 12:33 AST 31 units/L (5-40) 06/13/20 12:33 ALT 25 units/L (7-56) 06/13/20 12:33 Alkaline Phosphatase 93 units/L (35-129) 06/13/20 12:33 Total Protein 7.4 g/dL (6.3-8.2) 06/13/20 12:33 Albumin 4.3 g/dL (3.9-5) 06/13/20 12:33 Albumin/Globulin Ratio 1.4 % 06/13/20 12:33 TSH 0.554 mlU/mL (0.270-4.200) 06/13/20 15:11 Free T4 1.12 ng/dL (0.76-1.46) 06/13/20 15:11 Urine Color Yellow (Yellow) 06/13/20 19:28 Urine Turbidity Clear (Clear) 06/13/20 19:28 Urine pH 5.0 (5.0-7.0) 06/13/20 19:28 Ur Specific [place] 1.045 (1.003-1.030) H 06/13/20 19:28 Urine Protein <15 mg/dl mg/dL (Negative) 06/13/20 19:28 Urine Glucose (UA) Neg mg/dL (Negative) 06/13/20 19:28 Urine Ketones Neg mg/dL (Negative) 06/13/20 19:28 Urine Blood Neg (Negative) 06/13/20 19:28 Urine Nitrite Neg (Negative) 06/13/20 19:28 Urine Bilirubin Neg (Negative) 06/13/20 19:28 Urine Urobilinogen < 2.0 mg/dL (<2.0) 06/13/20 19:28 Ur Leukocyte Esterase Neg (Negative) 06/13/20 19:28 Urine WBC (Auto) < 1.0 /HPF (0.0-6.0) 06/13/20 19:28 Urine RBC (Auto) 1.0 /HPF (0.0-6.0) 06/13/20 19:28 Urine Mucus Few /HPF 06/13/20 19:28 Urine Opiates Screen Presumptive negative 06/13/20 19:28 Urine Methadone Screen Presumptive negative 06/13/20 19:28 Ur Barbiturates Screen Presumptive negative 06/13/20 19:28 Ur Phencyclidine Scrn Presumptive negative 06/13/20 19:28 Ur Amphetamines Screen Presumptive negative 06/13/20 19:28 U Benzodiazepines Scrn Presumptive negative 06/13/20 19:28 Urine Cocaine Screen Presumptive positive 06/13/20 19:28 U Marijuana (THC) Screen Presumptive negative 06/13/20 19:28 Drugs of Abuse Note Disclamer 06/13/20 19:28 Plasma/Serum Alcohol < 0.01 % (0-0.07) 06/13/20 15:51 Up/IV: Voiding Method Toilet Active Medications - Current Medications Current Medications: Generic Name Dose Route Start Last Admin Trade Name Freq PRN Reason Stop Dose Admin Acetaminophen 650 mg 06/13/20 18:43 Tylenol PO Q4H PRN Pain MILD(1-3)/Fever >100.5/CABRAL Ondansetron HCl 4 mg 06/13/20 18:43 Zofran IV Q8H PRN Nausea And Vomiting Sodium Chloride 10 ml 06/13/20 22:00 06/13/20 22:05 Sodium Chloride Flush Syringe 10 Ml IV 10 ml BID PHILIPPE Administration Sodium Chloride 10 ml 06/13/20 18:43 Sodium Chloride Flush Syringe 10 Ml IV PRN PRN LINE FLUSH
[2020-06-15] MEDS: methylPREDNISolone Sod Succinate 40 MG/1 ML INJ IV SCH ×2 (13:11→22:07)
[2020-06-15] MEDS: hydroCHLOROthiazide 12.5 MG CAP PO SCH ×2 (15:08→22:07)
--- NOTE | 2020-06-15 17:50 | Magnetic Resonance Report ---
MRI BRAIN WITHOUT CONTRAST INDICATION / CLINICAL INFORMATION: Demyelinating neuropathy. Patient presented with blurred vision and right-sided numbness. TECHNIQUE: Multiplanar, multisequence MR images of the brain were obtained. COMPARISON: Head CT 06/13/2020 FINDINGS: BRAIN / INTRACRANIAL CONTENTS: Evaluation brainstem is remarkable for a region of restricted diffusion involving the lateral aspect of the medulla. Similar findings are seen in the medial aspect of the right cerebellar hemisphere. Yousif btle signal changes are seen in the same distribution on FLAIR and T2-weighted scans. 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 Are there signs or symptoms of Wall[place] s yndrome (lateral medullary syndrome) Brainstem and cerebellum have an otherwise unremarkable appearan ce. Periventricular and scattered deep white matter hyperintensities are observed in both cerebral hemisp heres. Bilaterally symmetrical white matter lesions are present in the corpus callosum and adjacent f rontal lobe white matter (series 8 image 22 and series 42 image 43 through 34). Smaller white matter lesions are seen elsewhere. These are considered abnormal findings in this 39-year-old individual. Po ssibility of demyelinating disease should be considered, especially in patients history of sensory di sturbance. No additional supratentorial abnormalities are identified. The third and lateral ventricle s and cortical sulci are normal in size and configuration. There is no mass effect. No evidence of in tracranial hemorrhage or extra-axial fluid collection is seen.. There is no indication of remote steff ical infarction. Diffusion weighted scans are negative. There is no indication of acute ischemic inju ry. MIDLINE STRUCTURES:No abnormalities are seen to involve the pituitary gland. Pineal region has an unr emarkable appearance. CRANIOCERVICAL JUNCTION: No abnormalities are identified at the craniocervical junction. VASCULAR FLOW-VOIDS: Normal flow-voids are present within the major intracranial vessels. ORBITS: The orbits have an unremarkable appearance. SINUSES / MASTOIDS: There is no indication of inflammatory disease in the paranasal sinuses or mastoi d air cells. IMPRESSION: 1. Areas restricted diffusion involving lateral aspect medulla on the right and medial aspect of the right cerebellar hemisphere including portions of the right cerebellar tonsil. 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 2. Abnormal white matter findings in both cerebral hemispheres as described above. Signer Name: Ty Lynn MD Signed: 06/15/2020 5:45 PM Workstation Name: [id number]
--- NOTE | 2020-06-15 18:03 | Magnetic Resonance Report ---
MRA NECK WITHOUT CONTRAST HISTORY: Patient presented with blurred vision and right-sided numbness. COMPARISON: CTA neck 06/13/2020 TECHNIQUE: Routine MRA neck performed. 3-D/MIP reformats postprocessed. Percentage stenosis is dete rmined by direct quantitative measurements of distal internal carotid artery diameter compared with n ormal reference segments or by criteria similar to NASCET where applicable. CONTRAST: none FINDINGS: MRA NECK: Aortic arch: Aortic arch and origins of the great vessels are not well demonstrated on this noncontra st MRA neck. Vertebral arteries: The origins of the vertebral arteries not clearly demonstrated. Left vertebral ar evelyn is dominant. Basilar artery origin is not included. Right carotid artery:Right common carotid artery, the carotid bifurcation and cervical portions of th e right internal carotid arteries all have an unremarkable appearance. Left carotid artery:The left common carotid artery, left carotid bifurcation and cervical portions of the left internal carotid artery all have an unremarkable appearance. SUMMARY:The degree of stenosis, if any, is determined utilizing NASCET like criteria. In this case th ere is no indication of stenosis at the carotid bifurcations or elsewhere. Additional findings: None. IMPRESSION: 1. No indication of hemodynamically significant stenosis at the carotid bifurcations or elsewhere. Signer Name: Ty Lynn MD Signed: 06/15/2020 5:59 PM Workstation Name: [id number]
--- NOTE | 2020-06-15 20:29 | Progress Note ---
Assessment and Plan - Patient Problems (1) Demyelinating neuropathy Current Visit: Yes Status: Acute Plan to address problem: CT head reviewed, tele-neurology consulted, neurology consulted, further imaging studies as per neurology team, empiric IV steroid therapy, supportive care, neuro check, seizure precaution, aspiration precautions, MRI/MRA brain without contrast. (2) Nicotine dependence Current Visit: Yes Status: Acute Qualifiers: Nicotine product type: cigarettes Substance use status: in withdrawal Qualified Code(s): F17.213 - Nicotine dependence, cigarettes, with withdrawal Plan to address problem: Supportive care, behavior change counseling, +15 minutes. (3) Cocaine dependence Current Visit: Yes Status: Acute Qualifiers: Substance use status: uncomplicated Qualified Code(s): F14.20 - Cocaine dependence, uncomplicated Plan to address problem: Outpatient substance dependence counseling follow-up. (4) DVT prophylaxis Current Visit: Yes Status: Acute Plan to address problem: SCD to bilateral lower extremities while in bed, patient is ambulatory. History Interval history: 39 YO Male HD #2 with Central Nystagmus, Demyelinating Neuropathy complicated by impaired vision and gait instability. Pt acknowledges persistent symptoms at this time. Patient pending neurologic exam. Patient continues to acknowledge blurred vision and wide-based gait. . No reported nursing events. Patient resting comfortably Hospitalist Physical - Constitutional Vitals: Temp Pulse Resp BP Pulse Ox 98.7 F 64 16 172/96 99 06/15/20 19:08 06/15/20 19:08 06/15/20 19:08 06/15/20 19:08 06/15/20 19:08 General appearance: Present: mild distress - EENT Eyes: Present: PERRL ENT: hearing intact - Neck Neck: Present: supple - Respiratory Respiratory: bilateral: CTA - Cardiovascular Rhythm: regular Heart Sounds: Present: S1 & S2 - Extremities Extremities: no ischemia Peripheral Pulses: within normal limits - Abdominal General gastrointestinal: soft, non-tender, non-distended - Integumentary Integumentary: Present: clear, dry - Psychiatric Psychiatric: appropriate mood/affect, cooperative - Neurologic Neurologic: CNII-XII intact Results - Labs CBC & Chem 7: 06/13/20 12:33 06/14/20 04:27 Labs: Laboratory Last Values WBC 7.7 K/mm3 (4.5-11.0) 06/13/20 12:33 RBC 5.49 M/mm3 (3.65-5.03) H 06/13/20 12:33 Hgb 14.5 gm/dl (11.8-15.2) 06/13/20 12:33 Hct 44.5 % (35.5-45.6) 06/13/20 12:33 MCV 81 fl (84-94) L 06/13/20 12:33 MCH 26 pg (28-32) L 06/13/20 12:33 MCHC 33 % (32-34) 06/13/20 12:33 RDW 14.2 % (13.2-15.2) 06/13/20 12:33 Plt Count 257 K/mm3 (140-440) 06/13/20 12:33 Lymph % (Auto) 39.8 % (13.4-35.0) H 06/13/20 12:33 [place] % (Auto) 8.8 % (0.0-7.3) H 06/13/20 12:33 Eos % (Auto) 2.1 % (0.0-4.3) 06/13/20 12:33 Baso % (Auto) 0.4 % (0.0-1.8) 06/13/20 12:33 Lymph # 3.1 K/mm3 (1.2-5.4) 06/13/20 12:33 [place] # 0.7 K/mm3 (0.0-0.8) 06/13/20 12:33 Eos # 0.2 K/mm3 (0.0-0.4) 06/13/20 12:33 Baso # 0.0 K/mm3 (0.0-0.1) 06/13/20 12:33 Seg Neutrophils % 48.9 % (40.0-70.0) 06/13/20 12:33 Seg Neutrophils # 3.8 K/mm3 (1.8-7.7) 06/13/20 12:33 Sodium 138 mmol/L (137-145) 06/14/20 04:27 Potassium 4.5 mmol/L (3.6-5.0) 06/14/20 04:27 Chloride 100.6 mmol/L (98-107) 06/14/20 04:27 Carbon Dioxide 22 mmol/L (22-30) 06/14/20 04:27 Anion Gap 20 mmol/L 06/14/20 04:27 BUN 11 mg/dL (9-20) 06/14/20 04:27 Creatinine 1.0 mg/dL (0.8-1.3) 06/14/20 04:27 Estimated GFR > 60 ml/min 06/14/20 04:27 BUN/Creatinine Ratio 11 % 06/14/20 04:27 Glucose 180 mg/dL (75-100) H 06/14/20 04:27 POC Glucose 81 (70-105) 06/14/20 21:40 Calcium 9.8 mg/dL (8.4-10.2) 06/14/20 04:27 Total Bilirubin 0.70 mg/dL (0.1-1.2) 06/13/20 12:33 AST 31 units/L (5-40) 06/13/20 12:33 ALT 25 units/L (7-56) 06/13/20 12:33 Alkaline Phosphatase 93 units/L (35-129) 06/13/20 12:33 Total Protein 7.4 g/dL (6.3-8.2) 06/13/20 12:33 Albumin 4.3 g/dL (3.9-5) 06/13/20 12:33 Albumin/Globulin Ratio 1.4 % 06/13/20 12:33 TSH 0.554 mlU/mL (0.270-4.200) 06/13/20 15:11 Free T4 1.12 ng/dL (0.76-1.46) 06/13/20 15:11 Urine Color Yellow (Yellow) 06/13/20 19:28 Urine Turbidity Clear (Clear) 06/13/20 19:28 Urine pH 5.0 (5.0-7.0) 06/13/20 19:28 Ur Specific [place] 1.045 (1.003-1.030) H 06/13/20 19:28 Urine Protein <15 mg/dl mg/dL (Negative) 06/13/20 19:28 Urine Glucose (UA) Neg mg/dL (Negative) 06/13/20 19:28 Urine Ketones Neg mg/dL (Negative) 06/13/20 19:28 Urine Blood Neg (Negative) 06/13/20 19:28 Urine Nitrite Neg (Negative) 06/13/20 19:28 Urine Bilirubin Neg (Negative) 06/13/20 19:28 Urine Urobilinogen < 2.0 mg/dL (<2.0) 06/13/20 19:28 Ur Leukocyte Esterase Neg (Negative) 06/13/20 19:28 Urine WBC (Auto) < 1.0 /HPF (0.0-6.0) 06/13/20 19:28 Urine RBC (Auto) 1.0 /HPF (0.0-6.0) 06/13/20 19:28 Urine Mucus Few /HPF 06/13/20 19:28 Urine Opiates Screen Presumptive negative 06/13/20 19:28 Urine Methadone Screen Presumptive negative 06/13/20 19:28 Ur Barbiturates Screen Presumptive negative 06/13/20 19:28 Ur Phencyclidine Scrn Presumptive negative 06/13/20 19:28 Ur Amphetamines Screen Presumptive negative 06/13/20 19:28 U Benzodiazepines Scrn Presumptive negative 06/13/20 19:28 Urine Cocaine Screen Presumptive positive 06/13/20 19:28 U Marijuana (THC) Screen Presumptive negative 06/13/20 19:28 Drugs of Abuse Note Disclamer 06/13/20 19:28 Plasma/Serum Alcohol < 0.01 % (0-0.07) 06/13/20 15:51 Up/IV: Voiding Method Toilet IV Catheter Type [Left INT / Saline Lock Antecubital] Active Medications - Current Medications Current Medications: Generic Name Dose Route Start Last Admin Trade Name Freq PRN Reason Stop Dose Admin Acetaminophen 650 mg 06/13/20 18:43 Tylenol PO Q4H PRN Pain MILD(1-3)/Fever >100.5/CABRAL Hydrochlorothiazide 12.5 mg 06/15/20 14:00 06/15/20 15:08 Hctz PO 12.5 mg BID PHILIPPE Administration Methylprednisolone Sodium Succinate 40 mg 06/15/20 12:30 06/15/20 13:11 Solu-Medrol IV 06/15/20 23:59 40 mg Q12HR PHILIPPE Administration Ondansetron HCl 4 mg 06/13/20 18:43 Zofran IV Q8H PRN Nausea And Vomiting Prednisone 40 mg 06/16/20 10:00 Deltasone PO QDAY PHILIPPE Sodium Chloride 10 ml 06/13/20 22:00 06/15/20 10:54 Sodium Chloride Flush Syringe 10 Ml IV 10 ml BID PHILIPPE Administration Sodium Chloride 10 ml 06/13/20 18:43 Sodium Chloride Flush Syringe 10 Ml IV PRN PRN LINE FLUSH
[2020-06-15] MEDS ORDERED: methylPREDNISolone Sod Succinate 40 MG/1 ML INJ IV SCH (22:00)
[2020-06-16] MEDS: predniSONE 20 MG TAB PO SCH (11:25)
[2020-06-16] MEDS: hydroCHLOROthiazide 12.5 MG CAP PO SCH ×2 (11:26→22:09)
--- NOTE | 2020-06-16 20:16 | Progress Note ---
Assessment and Plan - Patient Problems (1) Demyelinating neuropathy Current Visit: Yes Status: Acute Plan to address problem: CT head reviewed, tele-neurology consulted, neurology consulted, further imaging studies as per neurology team, empiric IV steroid therapy, supportive care, neuro check, seizure precaution, aspiration precautions, MRI/MRA brain without contrast reviewed. Pending Neurology evaluation. D/C planning in am. (2) Nicotine dependence Current Visit: Yes Status: Acute Qualifiers: Nicotine product type: cigarettes Substance use status: in withdrawal Qualified Code(s): F17.213 - Nicotine dependence, cigarettes, with withdrawal Plan to address problem: Supportive care, behavior change counseling, +15 minutes. (3) Cocaine dependence Current Visit: Yes Status: Acute Qualifiers: Substance use status: uncomplicated Qualified Code(s): F14.20 - Cocaine dependence, uncomplicated Plan to address problem: Outpatient substance dependence counseling follow-up. (4) DVT prophylaxis Current Visit: Yes Status: Acute Plan to address problem: SCD to bilateral lower extremities while in bed, patient is ambulatory. History Interval history: 39 YO Male HD #3 with Central Nystagmus, Demyelinating Neuropathy complicated by impaired vision and gait instability. Pt acknowledges persistent symptoms again today. Patient pending neurologic exam. Patient continues to acknowledge blurred vision and wide-based gait. No reported nursing events. Patient resting comfortably in bed. Hospitalist Physical - Constitutional Vitals: Temp Pulse Resp BP Pulse Ox 98.5 F 72 15 133/81 97 06/16/20 16:26 06/16/20 16:26 06/16/20 16:26 06/16/20 16:26 06/16/20 16:26 General appearance: Present: mild distress - EENT Eyes: Present: PERRL, EOM intact ENT: hearing intact - Neck Neck: Present: supple - Respiratory Respiratory effort: normal Respiratory: bilateral: CTA - Cardiovascular Rhythm: regular Heart Sounds: Present: S1 & S2 - Extremities Extremities: no ischemia Peripheral Pulses: within normal limits - Abdominal General gastrointestinal: soft, non-tender, non-distended - Integumentary Integumentary: Present: clear, dry - Psychiatric Psychiatric: appropriate mood/affect, cooperative - Neurologic Neurologic: CNII-XII intact Results - Labs CBC & Chem 7: 06/13/20 12:33 06/14/20 04:27 Labs: Laboratory Last Values WBC 7.7 K/mm3 (4.5-11.0) 06/13/20 12:33 RBC 5.49 M/mm3 (3.65-5.03) H 06/13/20 12:33 Hgb 14.5 gm/dl (11.8-15.2) 06/13/20 12:33 Hct 44.5 % (35.5-45.6) 06/13/20 12:33 MCV 81 fl (84-94) L 06/13/20 12:33 MCH 26 pg (28-32) L 06/13/20 12:33 MCHC 33 % (32-34) 06/13/20 12:33 RDW 14.2 % (13.2-15.2) 06/13/20 12:33 Plt Count 257 K/mm3 (140-440) 06/13/20 12:33 Lymph % (Auto) 39.8 % (13.4-35.0) H 06/13/20 12:33 [place] % (Auto) 8.8 % (0.0-7.3) H 06/13/20 12:33 Eos % (Auto) 2.1 % (0.0-4.3) 06/13/20 12:33 Baso % (Auto) 0.4 % (0.0-1.8) 06/13/20 12:33 Lymph # 3.1 K/mm3 (1.2-5.4) 06/13/20 12:33 [place] # 0.7 K/mm3 (0.0-0.8) 06/13/20 12:33 Eos # 0.2 K/mm3 (0.0-0.4) 06/13/20 12:33 Baso # 0.0 K/mm3 (0.0-0.1) 06/13/20 12:33 Seg Neutrophils % 48.9 % (40.0-70.0) 06/13/20 12:33 Seg Neutrophils # 3.8 K/mm3 (1.8-7.7) 06/13/20 12:33 Sodium 138 mmol/L (137-145) 06/14/20 04:27 Potassium 4.5 mmol/L (3.6-5.0) 06/14/20 04:27 Chloride 100.6 mmol/L (98-107) 06/14/20 04:27 Carbon Dioxide 22 mmol/L (22-30) 06/14/20 04:27 Anion Gap 20 mmol/L 06/14/20 04:27 BUN 11 mg/dL (9-20) 06/14/20 04:27 Creatinine 1.0 mg/dL (0.8-1.3) 06/14/20 04:27 Estimated GFR > 60 ml/min 06/14/20 04:27 BUN/Creatinine Ratio 11 % 06/14/20 04:27 Glucose 180 mg/dL (75-100) H 06/14/20 04:27 POC Glucose 81 (70-105) 06/14/20 21:40 Calcium 9.8 mg/dL (8.4-10.2) 06/14/20 04:27 Total Bilirubin 0.70 mg/dL (0.1-1.2) 06/13/20 12:33 AST 31 units/L (5-40) 06/13/20 12:33 ALT 25 units/L (7-56) 06/13/20 12:33 Alkaline Phosphatase 93 units/L (35-129) 06/13/20 12:33 Total Protein 7.4 g/dL (6.3-8.2) 06/13/20 12:33 Albumin 4.3 g/dL (3.9-5) 06/13/20 12:33 Albumin/Globulin Ratio 1.4 % 06/13/20 12:33 TSH 0.554 mlU/mL (0.270-4.200) 06/13/20 15:11 Free T4 1.12 ng/dL (0.76-1.46) 06/13/20 15:11 Urine Color Yellow (Yellow) 06/13/20 19:28 Urine Turbidity Clear (Clear) 06/13/20 19:28 Urine pH 5.0 (5.0-7.0) 06/13/20 19:28 Ur Specific [place] 1.045 (1.003-1.030) H 06/13/20 19:28 Urine Protein <15 mg/dl mg/dL (Negative) 06/13/20 19:28 Urine Glucose (UA) Neg mg/dL (Negative) 06/13/20 19:28 Urine Ketones Neg mg/dL (Negative) 06/13/20 19:28 Urine Blood Neg (Negative) 06/13/20 19:28 Urine Nitrite Neg (Negative) 06/13/20 19:28 Urine Bilirubin Neg (Negative) 06/13/20 19:28 Urine Urobilinogen < 2.0 mg/dL (<2.0) 06/13/20 19:28 Ur Leukocyte Esterase Neg (Negative) 06/13/20 19:28 Urine WBC (Auto) < 1.0 /HPF (0.0-6.0) 06/13/20 19:28 Urine RBC (Auto) 1.0 /HPF (0.0-6.0) 06/13/20 19:28 Urine Mucus Few /HPF 06/13/20 19:28 Urine Opiates Screen Presumptive negative 06/13/20 19:28 Urine Methadone Screen Presumptive negative 06/13/20 19:28 Ur Barbiturates Screen Presumptive negative 06/13/20 19:28 Ur Phencyclidine Scrn Presumptive negative 06/13/20 19:28 Ur Amphetamines Screen Presumptive negative 06/13/20 19:28 U Benzodiazepines Scrn Presumptive negative 06/13/20 19:28 Urine Cocaine Screen Presumptive positive 06/13/20 19:28 U Marijuana (THC) Screen Presumptive negative 06/13/20 19:28 Drugs of Abuse Note Disclamer 06/13/20 19:28 Plasma/Serum Alcohol < 0.01 % (0-0.07) 06/13/20 15:51 Up/IV: Voiding Method Toilet IV Catheter Type [Left INT / Saline Lock Antecubital] Active Medications - Current Medications Current Medications: Generic Name Dose Route Start Last Admin Trade Name Freq PRN Reason Stop Dose Admin Acetaminophen 650 mg 06/13/20 18:43 Tylenol PO Q4H PRN Pain MILD(1-3)/Fever >100.5/CABRAL Hydrochlorothiazide 12.5 mg 06/15/20 14:00 06/16/20 11:26 Hctz PO 12.5 mg BID PHILIPPE Administration Ondansetron HCl 4 mg 06/13/20 18:43 Zofran IV Q8H PRN Nausea And Vomiting Prednisone 40 mg 06/16/20 10:00 06/16/20 11:25 Deltasone PO 40 mg QDAY PHILIPPE Administration Sodium Chloride 10 ml 06/13/20 22:00 06/16/20 11:27 Sodium Chloride Flush Syringe 10 Ml IV 10 ml BID PHILIPPE Administration Sodium Chloride 10 ml 06/13/20 18:43 Sodium Chloride Flush Syringe 10 Ml IV PRN PRN LINE FLUSH
--- NOTE | 2020-06-17 07:22 | Progress Note ---
Assessment and Plan Assessment and plan: (1) Demyelinating neuropathy Current Visit: Yes Status: Acute Plan to address problem: CT head reviewed, tele-neurology consulted, neurology consulted, further imaging studies as per neurology team, empiric IV steroid therapy, supportive care, neuro check, seizure precaution, aspiration precautions, MRI/MRA brain without contrast reviewed. Pending Neurology evaluation. Patient is still complaining dizziness and blurring of vision (2) Nicotine dependence Current Visit: Yes Status: Acute Qualifiers: Nicotine product type: cigarettes Substance use status: in withdrawal Qualified Code(s): F17.213 - Nicotine dependence, cigarettes, with withdrawal Plan to address problem: Supportive care, behavior change counseling, +15 minutes. (3) Cocaine dependence Current Visit: Yes Status: Acute Qualifiers: Substance use status: uncomplicated Qualified Code(s): F14.20 - Cocaine dependence, uncomplicated Plan to address problem: Outpatient substance dependence counseling follow-up. (4) DVT prophylaxis Current Visit: Yes Status: Acute Plan to address problem: SCD to bilateral lower extremities while in bed, patient is ambulatory. Disposition; pending neuro evaluation. History Interval history: Patient was seen and evaluated during morning rounds Patient still complaining of dizziness Patient need to be evaluated by neurology Hospitalist Physical - Physical exam Narrative exam: Not in cardiopulmonary distress. The patient appeared well nourished and normally developed. Vital signs as documented. Head exam is unremarkable. No scleral icterus . Neck is without jugular venous distension, thyromegaly, or carotid bruits. Lungs are clear to auscultation. Cardiac exam reveals regular rate and Rhythm. Abdominal exam reveals normal bowel sounds, nontender, no organomegaly. Extremities are nonedematous and both femoral and pedal pulses are normal. PATTERN ATTENDANT: Alert and oriented 3. No focal weakness. - Constitutional Vitals: Temp Pulse Resp BP Pulse Ox 98.4 F 64 16 139/87 98 06/17/20 04:42 06/17/20 04:42 06/17/20 04:42 06/17/20 04:42 06/17/20 04:42 General appearance: Present: mild distress Results - Labs CBC & Chem 7: 06/13/20 12:33 06/14/20 04:27 Labs: Laboratory Last Values WBC 7.7 K/mm3 (4.5-11.0) 06/13/20 12:33 RBC 5.49 M/mm3 (3.65-5.03) H 06/13/20 12:33 Hgb 14.5 gm/dl (11.8-15.2) 06/13/20 12:33 Hct 44.5 % (35.5-45.6) 06/13/20 12:33 MCV 81 fl (84-94) L 06/13/20 12:33 MCH 26 pg (28-32) L 06/13/20 12:33 MCHC 33 % (32-34) 06/13/20 12:33 RDW 14.2 % (13.2-15.2) 06/13/20 12:33 Plt Count 257 K/mm3 (140-440) 06/13/20 12:33 Lymph % (Auto) 39.8 % (13.4-35.0) H 06/13/20 12:33 [place] % (Auto) 8.8 % (0.0-7.3) H 06/13/20 12:33 Eos % (Auto) 2.1 % (0.0-4.3) 06/13/20 12:33 Baso % (Auto) 0.4 % (0.0-1.8) 06/13/20 12:33 Lymph # 3.1 K/mm3 (1.2-5.4) 06/13/20 12:33 [place] # 0.7 K/mm3 (0.0-0.8) 06/13/20 12:33 Eos # 0.2 K/mm3 (0.0-0.4) 06/13/20 12:33 Baso # 0.0 K/mm3 (0.0-0.1) 06/13/20 12:33 Seg Neutrophils % 48.9 % (40.0-70.0) 06/13/20 12:33 Seg Neutrophils # 3.8 K/mm3 (1.8-7.7) 06/13/20 12:33 Sodium 138 mmol/L (137-145) 06/14/20 04:27 Potassium 4.5 mmol/L (3.6-5.0) 06/14/20 04:27 Chloride 100.6 mmol/L (98-107) 06/14/20 04:27 Carbon Dioxide 22 mmol/L (22-30) 06/14/20 04:27 Anion Gap 20 mmol/L 06/14/20 04:27 BUN 11 mg/dL (9-20) 06/14/20 04:27 Creatinine 1.0 mg/dL (0.8-1.3) 06/14/20 04:27 Estimated GFR > 60 ml/min 06/14/20 04:27 BUN/Creatinine Ratio 11 % 06/14/20 04:27 Glucose 180 mg/dL (75-100) H 06/14/20 04:27 POC Glucose 81 (70-105) 06/14/20 21:40 Calcium 9.8 mg/dL (8.4-10.2) 06/14/20 04:27 Total Bilirubin 0.70 mg/dL (0.1-1.2) 06/13/20 12:33 AST 31 units/L (5-40) 06/13/20 12:33 ALT 25 units/L (7-56) 06/13/20 12:33 Alkaline Phosphatase 93 units/L (35-129) 06/13/20 12:33 Total Protein 7.4 g/dL (6.3-8.2) 06/13/20 12:33 Albumin 4.3 g/dL (3.9-5) 06/13/20 12:33 Albumin/Globulin Ratio 1.4 % 06/13/20 12:33 TSH 0.554 mlU/mL (0.270-4.200) 06/13/20 15:11 Free T4 1.12 ng/dL (0.76-1.46) 06/13/20 15:11 Urine Color Yellow (Yellow) 06/13/20 19:28 Urine Turbidity Clear (Clear) 06/13/20 19:28 Urine pH 5.0 (5.0-7.0) 06/13/20 19:28 Ur Specific [place] 1.045 (1.003-1.030) H 06/13/20 19:28 Urine Protein <15 mg/dl mg/dL (Negative) 06/13/20 19:28 Urine Glucose (UA) Neg mg/dL (Negative) 06/13/20 19:28 Urine Ketones Neg mg/dL (Negative) 06/13/20 19:28 Urine Blood Neg (Negative) 06/13/20 19:28 Urine Nitrite Neg (Negative) 06/13/20 19:28 Urine Bilirubin Neg (Negative) 06/13/20 19:28 Urine Urobilinogen < 2.0 mg/dL (<2.0) 06/13/20 19:28 Ur Leukocyte Esterase Neg (Negative) 06/13/20 19:28 Urine WBC (Auto) < 1.0 /HPF (0.0-6.0) 06/13/20 19:28 Urine RBC (Auto) 1.0 /HPF (0.0-6.0) 06/13/20 19:28 Urine Mucus Few /HPF 06/13/20 19:28 Urine Opiates Screen Presumptive negative 06/13/20 19:28 Urine Methadone Screen Presumptive negative 06/13/20 19:28 Ur Barbiturates Screen Presumptive negative 06/13/20 19:28 Ur Phencyclidine Scrn Presumptive negative 06/13/20 19:28 Ur Amphetamines Screen Presumptive negative 06/13/20 19:28 U Benzodiazepines Scrn Presumptive negative 06/13/20 19:28 Urine Cocaine Screen Presumptive positive 06/13/20 19:28 U Marijuana (THC) Screen Presumptive negative 06/13/20 19:28 Drugs of Abuse Note Disclamer 06/13/20 19:28 Plasma/Serum Alcohol < 0.01 % (0-0.07) 06/13/20 15:51 Up/IV: Voiding Method Toilet IV Catheter Type [Left INT / Saline Lock Antecubital] Active Medications - Current Medications Current Medications: Generic Name Dose Route Start Last Admin Trade Name Freq PRN Reason Stop Dose Admin Acetaminophen 650 mg 06/13/20 18:43 Tylenol PO Q4H PRN Pain MILD(1-3)/Fever >100.5/CABRAL Hydrochlorothiazide 12.5 mg 06/15/20 14:00 06/16/20 22:09 Hctz PO 12.5 mg BID PHILIPPE Administration Ondansetron HCl 4 mg 06/13/20 18:43 Zofran IV Q8H PRN Nausea And Vomiting Prednisone 40 mg 06/16/20 10:00 06/16/20 11:25 Deltasone PO 40 mg QDAY PHILIPPE Administration Sodium Chloride 10 ml 06/13/20 22:00 06/16/20 22:10 Sodium Chloride Flush Syringe 10 Ml IV 10 ml BID PHILIPPE Administration Sodium Chloride 10 ml 06/13/20 18:43 Sodium Chloride Flush Syringe 10 Ml IV PRN PRN LINE FLUSH
[2020-06-17] MEDS: predniSONE 20 MG TAB PO SCH (09:28)
[2020-06-17] MEDS: hydroCHLOROthiazide 12.5 MG CAP PO SCH ×2 (09:28→21:45)
[2020-06-17] MEDS: ASPIRIN EC 81 MG TAB PO SCH (13:00)
--- NOTE | 2020-06-17 14:50 | Consultation ---
History of Present Illness Consult date: 06/17/20 Reason for Consult: Imbalanced gait, double vision Chief complaint: Imbalanced gait, double vision. History of present illness: Patient is a 39 y/o man w/ a h/o cocaine abuse and smoking. He presented on 06/13/20 with symptoms of right sided numbness and blurry vision, which had started a few days prior to admission. Symptoms began about 2 weeks prior to admission. He also c/o imbalanced gait. He continues to complain of double vision and imbalanced gait. Patient reportedly had a fall a few days ago after which symptoms began. He states that he had fallen off the bed while sleeping, however denies having any neck pain afterwards. Past History Past Medical History: other (See HPI) Past Surgical History: No surgical history, Other (Reviewed) Social history: single, smoking, other (Cocaine abuse). denies: alcohol abuse, prescription drug abuse Family history: hypertension Medications and Allergies Allergies Allergy/AdvReac Type Severity Reaction Status Date / Time No Known Allergies Allergy Verified 06/13/20 12:07 Home Medications Medication Instructions Recorded Confirmed Last Taken Type No Known Home Medications [No 10/10/18 06/17/20 Unknown History Reported Home Medications] Active Meds: Active Medications Acetaminophen (Tylenol) 650 mg PO Q4H PRN PRN Reason: Pain MILD(1-3)/Fever >100.5/CABRAL Aspirin (Halfprin Ec) 81 mg PO QDAY [facility] Last Admin: 06/17/20 13:00 Dose: 81 mg Documented by: Atorvastatin Calcium (Lipitor) 40 mg PO QHS [facility] Hydrochlorothiazide (Hctz) 12.5 mg PO BID [facility] Last Admin: 06/17/20 09:28 Dose: 12.5 mg Documented by: Ondansetron HCl (Zofran) 4 mg IV Q8H PRN PRN Reason: Nausea And Vomiting Prednisone (Deltasone) 40 mg PO QDAY [facility] Last Admin: 06/17/20 09:28 Dose: 40 mg Documented by: Sodium Chloride (Sodium Chloride Flush Syringe 10 Ml) 10 ml IV BID [facility] Last Admin: 06/17/20 09:28 Dose: 10 ml Documented by: Sodium Chloride (Sodium Chloride Flush Syringe 10 Ml) 10 ml IV PRN PRN PRN Reason: LINE FLUSH Review of Systems All systems: negative Eyes: bilateral: diplopia Neurological: numbness, lack of coordination, double vision Physical Examination - Vital Signs Vital Signs: Vital Signs Temp Pulse Resp BP Pulse Ox 98.3 F 57 L 16 170/96 96 06/13/20 12:07 06/13/20 12:07 06/13/20 12:07 06/13/20 12:07 06/13/20 12:07 - Physical Exam Narrative exam: Patient is alert, awake, oriented x4, follows complex commands. No dysarthria or aphasia noted. PERRL, Right gaze preference, dysconjugate gaze noted when look towards left, right eye has limited left gaze, VFF, tongue midline, bilaterally intact to LT, no facial weakness noted. 5/5 strength in RUE/RLE/LLE, LUE 4/5. Bilaterally intact light touch. Bilaterally intact to FTN and HTS. - Level of Consciousness 1a. Level of Consciousness: alert/keenly responsive - LOC Questions 1b. LOC Questions: answers both correctly - LOC Command 1c. LOC Commands: performs tasks correctly - Best Gaze 2. Best Gaze: partial gaze palsy - Visual 3. Visual: no visual loss - Facial Palsy 4. Facial Palsy: normal symmetrical movement - Motor Arm 5a. Motor Arm Left: no drift 5b. Motor Arm Right: no drift - Motor Leg 6a. Motor Leg Left: no drift 6b. Motor Leg Right: no drift - Limb Ataxia 7. Limb Ataxia: absent - Sensory 8. Sensory: normal - Best Language 9. Best Language: no aphasia - Dysarthria 10. Dysarthria: normal - Extinction and Inattention 11. Extinction/Inattention: no abnormality - Scoring Total Score: 1 Stroke Severity: Minor Stroke Results - Laboratory Findings CBC and BMP: 06/13/20 12:33 06/14/20 04:27 Abnormal Lab Findings: Abnormal Labs 06/13/20 06/13/20 06/13/20 12:26 12:33 12:33 RBC 5.49 H MCV 81 L MCH 26 L Lymph % (Auto) 39.8 H [place] % (Auto) 8.8 H Carbon Dioxide 21 L BUN 6 L Glucose 133 H POC Glucose 122 H Ur Specific [place] 06/13/20 06/14/20 19:28 04:27 RBC MCV MCH Lymph % (Auto) [place] % (Auto) Carbon Dioxide BUN Glucose 180 H POC Glucose Ur Specific [place] 1.045 H Assessment and Plan Patient is a 39 y/o man w/ a h/o cocaine abuse and smoking, who p/w right sided numbness, imbalanced gait, and blurry vision. According to the patient's clinical findings, he has had a stroke, as is seen on MRI Brain. Given timing of symptom onset being about 3 weeks ago, findings on MRI coincide with that temporally. Lower likelihood of demyelinating disease, given pattern of restriction diffusion, as well as recent cocaine use, which increases risk of stroke. Plan: 1. Stroke: - CT head: No acute abnormalities. - CTA head/neck: No significant stenosis. - MRI Brain: Noted to have infarcts in right medulla and cerebellum. - Echo: Pending. - Recommend dual antiplatelet therapy with aspirin 81 mg daily and Plavix 75 mg daily for 30 days, after which Plavix can be stopped. Discussed risks and benefits of dual antiplatelet therapy with patient, including hemorrhage, and patient agreed to take this. - Cont. statin. LDL goal <70 - Telemetry monitoring while in house - PT/OT/ST - DVT Ppx: Recommend lovenox - As etiology of stroke is cryptogenic, would recommend for patient to have long-term cardiac monitoring with 30-day MCOT or ILR with cardiology as outpati ent. - Given patient's visual deficits due to stroke, recommended that he does not drive until cleared by ophthalmology. Patient understood and accepted this. 2. Hypertension: - Recommend BP goal of normotension, as it has been >48 hours since symptom onset. - Recommend for patient to be started on anti-hypertensive medication prior to admission, as BP has been elevated, indicating underlying HTN, which was previously undiagnosed. - Will continue to monitor patient. Thank you for allowing me to take part in the care of this patient. Jose Kunz MD Neurology This clinical encounter was provided via live telemedicine platform. Consultative service was provided for neurology to support local providers. The Acute Teleneurology team should be contacted with any neurologic worsening or clinical changes, new test results, or new patient history that is reported to or discovered by the local team following completion of the teleneurology consultation, specifically that which has the potential to impact the consultative recommendations. Patient/Family was informed the Neurology Consult would happen via TeleHealth consult by way of interactive audio and video telecommunications and consented to receiving care in this manner. Due to the potential for life-threatening deterioration due to underlying neurologic illness, and limited resources available for patient care, teleme dicine was used as means of patient care. Telemedicine consultation is limited in the extent of physical exam that can be virtually provided. Time spent evaluating patient includes time for face to face visit via telemedicine, review of medical records, imaging studies and discussion of findings with providers, the patient and/or family.
[2020-06-17 16:15] LABS: Chol/HDL Ratio 2.46 %
[2020-06-18] MEDS: ASPIRIN EC 81 MG TAB PO SCH (09:12)
[2020-06-18] MEDS: CLOPIDOGREL 75 MG TAB PO SCH (09:12)
[2020-06-18] MEDS: hydroCHLOROthiazide 12.5 MG CAP PO SCH ×2 (09:12→23:44)
[2020-06-18] MEDS: predniSONE 20 MG TAB PO SCH (09:13)
--- NOTE | 2020-06-18 11:10 | Progress Note ---
Assessment and Plan Assessment and plan: (1) CVA Current Visit: Yes Status: Acute Plan to address problem: -CT head was normal -MRI showed stroke in the mid Dula and cerebellum -Patient has unsteady gait -OT evaluated and recommended acute rehab -Neurology consult appreciated -Patient is on aspirin Plavix and statin (2) Nicotine dependence Current Visit: Yes Status: Acute Qualifiers: Nicotine product type: cigarettes Substance use status: in withdrawal Qualified Code(s): F17.213 - Nicotine dependence, cigarettes, with withdrawal Plan to address problem: Counseled (3) Cocaine dependence Current Visit: Yes Status: Acute Qualifiers: Substance use status: uncomplicated Qualified Code(s): F14.20 - Cocaine dependence, uncomplicated Plan to address problem: Counseled Hypertension; uncontrolled -Patient was on HCTZ and I added amlodipine -Monitor and adjust as needed (4) DVT prophylaxis Current Visit: Yes Status: Acute Plan to address problem: SCD to bilateral lower extremities while in bed, patient is ambulatory. Disposition; acute rehab. Patient is unfunded and will discuss with case management History Interval history: Patient was seen and evaluated during morning rounds Patient still complaining of dizziness, patient has unsteady gait Patient need to be evaluated by neurology Hospitalist Physical - Physical exam Narrative exam: Not in cardiopulmonary distress. The patient appeared well nourished and normally developed. Vital signs as documented. Head exam is unremarkable. No scleral icterus . Neck is without jugular venous distension, thyromegaly, or carotid bruits. Lungs are clear to auscultation. Cardiac exam reveals regular rate and Rhythm. Abdominal exam reveals normal bowel sounds, nontender, no organomegaly. Extremities are nonedematous and both femoral and pedal pulses are normal. [employer]: Alert and oriented 3. No focal weakness. Unsteady gait. Patient have to hold the wall to walk. - Constitutional Vitals: Temp Pulse Resp BP Pulse Ox 98.1 F 64 16 145/83 98 06/18/20 04:27 06/18/20 04:27 06/18/20 04:27 06/18/20 04:27 06/18/20 04:27 General appearance: Present: mild distress Results - Labs CBC & Chem 7: 06/13/20 12:33 06/14/20 04:27 Labs: Laboratory Last Values WBC 7.7 K/mm3 (4.5-11.0) 06/13/20 12:33 RBC 5.49 M/mm3 (3.65-5.03) H 06/13/20 12:33 Hgb 14.5 gm/dl (11.8-15.2) 06/13/20 12:33 Hct 44.5 % (35.5-45.6) 06/13/20 12:33 MCV 81 fl (84-94) L 06/13/20 12:33 MCH 26 pg (28-32) L 06/13/20 12:33 MCHC 33 % (32-34) 06/13/20 12:33 RDW 14.2 % (13.2-15.2) 06/13/20 12:33 Plt Count 257 K/mm3 (140-440) 06/13/20 12:33 Lymph % (Auto) 39.8 % (13.4-35.0) H 06/13/20 12:33 [place] % (Auto) 8.8 % (0.0-7.3) H 06/13/20 12:33 Eos % (Auto) 2.1 % (0.0-4.3) 06/13/20 12:33 Baso % (Auto) 0.4 % (0.0-1.8) 06/13/20 12:33 Lymph # 3.1 K/mm3 (1.2-5.4) 06/13/20 12:33 [place] # 0.7 K/mm3 (0.0-0.8) 06/13/20 12:33 Eos # 0.2 K/mm3 (0.0-0.4) 06/13/20 12:33 Baso # 0.0 K/mm3 (0.0-0.1) 06/13/20 12:33 Seg Neutrophils % 48.9 % (40.0-70.0) 06/13/20 12:33 Seg Neutrophils # 3.8 K/mm3 (1.8-7.7) 06/13/20 12:33 Sodium 138 mmol/L (137-145) 06/14/20 04:27 Potassium 4.5 mmol/L (3.6-5.0) 06/14/20 04:27 Chloride 100.6 mmol/L (98-107) 06/14/20 04:27 Carbon Dioxide 22 mmol/L (22-30) 06/14/20 04:27 Anion Gap 20 mmol/L 06/14/20 04:27 BUN 11 mg/dL (9-20) 06/14/20 04:27 Creatinine 1.0 mg/dL (0.8-1.3) 06/14/20 04:27 Estimated GFR > 60 ml/min 06/14/20 04:27 BUN/Creatinine Ratio 11 % 06/14/20 04:27 Glucose 180 mg/dL (75-100) H 06/14/20 04:27 POC Glucose 81 (70-105) 06/14/20 21:40 Hemoglobin A1c 5.9 % (4-6) 06/17/20 15:25 Calcium 9.8 mg/dL (8.4-10.2) 06/14/20 04:27 Total Bilirubin 0.70 mg/dL (0.1-1.2) 06/13/20 12:33 AST 31 units/L (5-40) 06/13/20 12:33 ALT 25 units/L (7-56) 06/13/20 12:33 Alkaline Phosphatase 93 units/L (35-129) 06/13/20 12:33 Total Protein 7.4 g/dL (6.3-8.2) 06/13/20 12:33 Albumin 4.3 g/dL (3.9-5) 06/13/20 12:33 Albumin/Globulin Ratio 1.4 % 06/13/20 12:33 Triglycerides 99 mg/dL (2-149) 06/17/20 15:25 Cholesterol 195 mg/dL (50-199) 06/17/20 15:25 LDL Cholesterol Direct 112 mg/dL (50-130) 06/17/20 15:25 HDL Cholesterol 79 mg/dL (40-59) H 06/17/20 15:25 Cholesterol/HDL Ratio 2.46 % 06/17/20 15:25 TSH 0.554 mlU/mL (0.270-4.200) 06/13/20 15:11 Free T4 1.12 ng/dL (0.76-1.46) 06/13/20 15:11 Urine Color Yellow (Yellow) 06/13/20 19:28 Urine Turbidity Clear (Clear) 06/13/20 19:28 Urine pH 5.0 (5.0-7.0) 06/13/20 19:28 Ur Specific [place] 1.045 (1.003-1.030) H 06/13/20 19:28 Urine Protein <15 mg/dl mg/dL (Negative) 06/13/20 19:28 Urine Glucose (UA) Neg mg/dL (Negative) 06/13/20 19:28 Urine Ketones Neg mg/dL (Negative) 06/13/20 19:28 Urine Blood Neg (Negative) 06/13/20 19:28 Urine Nitrite Neg (Negative) 06/13/20 19:28 Urine Bilirubin Neg (Negative) 06/13/20 19:28 Urine Urobilinogen < 2.0 mg/dL (<2.0) 06/13/20 19:28 Ur Leukocyte Esterase Neg (Negative) 06/13/20 19:28 Urine WBC (Auto) < 1.0 /HPF (0.0-6.0) 06/13/20 19:28 Urine RBC (Auto) 1.0 /HPF (0.0-6.0) 06/13/20 19:28 Urine Mucus Few /HPF 06/13/20 19:28 Urine Opiates Screen Presumptive negative 06/13/20 19:28 Urine Methadone Screen Presumptive negative 06/13/20 19:28 Ur Barbiturates Screen Presumptive negative 06/13/20 19:28 Ur Phencyclidine Scrn Presumptive negative 06/13/20 19:28 Ur Amphetamines Screen Presumptive negative 06/13/20 19:28 U Benzodiazepines Scrn Presumptive negative 06/13/20 19:28 Urine Cocaine Screen Presumptive positive 06/13/20 19:28 U Marijuana (THC) Screen Presumptive negative 06/13/20 19:28 Drugs of Abuse Note Disclamer 06/13/20 19:28 Plasma/Serum Alcohol < 0.01 % (0-0.07) 06/13/20 15:51 - Diagnostic Impressions Diagnostic Impressions: Echocardiogram 06/17/20 12:04 Transthoracic Echocardiogram Indication: Stroke BP: 139/87 HR: 65 Conclusions *Global left ventricular wall motion and contractility are within normal limits. *The estimated ejection fraction is 60-65%. *Abnormal left ventricular diastolic filling is observed, consistent with impaired relaxation. *The right ventricular global systolic function is normal. *There is trace of mitral regurgitation. *The aortic valve is trileaflet. The leaflets are thin with normal excursion. There is no aortic stenosis or regurgitation present. *There is trace tricuspid regurgitation. *The pulmonic valve appears normal. *Intravenous agitated saline contrast was used to assess intracardiac shunting. *No atrial septal defected is demonstrated by agitated saline contrast. Findings Left Ventricle: The left ventricular chamber size is normal. Global left ventricular wall motion and contractility are within normal limits. The estimated ejection fraction is 60-65%. Abnormal left ventricular diastolic filling is observed, consistent with impaired relaxation. Left Atrium: The left atrial chamber size is normal. Right Ventricle: The right ventricular cavity size is normal. The right ventricular global systolic function is normal. Right Atrium: The right atrial cavity size is normal. No atrial septal defected is demonstrated by agitated saline contrast. Aortic Valve: The aortic valve is trileaflet. The leaflets are thin with normal excursion. There is no aortic stenosis or regurgitation present. The aortic valve is trileaflet. Mitral Valve: The mitral valve leaflets are mildly thickened. There is trace of mitral regurgitation. Tricuspid Valve: The tricuspid valve leaflets are normal. There is trace tricuspid regurgitation. Pulmonic Valve: The pulmonic valve appears normal. Pericardium: There is no pericardial effusion. Aorta: The aorta appears normal. Venous: The inferior vena cava appears normal. Contrast: Intravenous agitated saline contrast was used to assess intracardiac shunting. Measurements Chambers 2D Name Value Normal Range IVSd (2D) 1.12 cm (0.6 - 1.1) LVPWd (2D) 1.05 cm (0.6 - 1.1) LVIDd (2D) 4.64 cm (3.7 - 5.6) LVIDs (2D) 3.14 cm (2 - 3.8) LV FS (2D) 32.28 % - EF Teichholz (2D) 60.55 % - Ao root diameter (2D) 3.3 cm (2 - 3.7) Volumes/Mass Name Value Normal Range LA ESV SP 4CH (A/L) 23.66 ml - LA ESV SP 2CH (A/L) 33.86 ml - LA ESV BP (A/L) 30.62 ml - LA ESV BP (A/L) index 15.24 ml/m2 - LA ESV SP 4CH (MOD) 22.52 ml - LA ESV SP 2CH (MOD) 33.97 ml - LA ESV BP (MOD) 29.7 ml - LA ESV BP (MOD) index 14.77 ml/m2 - LV EDV SP 4CH (MOD) 131.6 ml - LV ESV SP 4CH (MOD) 50.27 ml - EF SP 4CH (MOD) 61.8 % - LV EDV SP 2CH (MOD) 114.61 ml - LV ESV SP 2CH (MOD) 38.83 ml - EF SP 2CH (MOD) 66.12 % - LV EDV BP 123.8 ml - LV ESV BP 47.63 ml - BP EF (MOD) 61.53 % - Diastolic/Systolic Function Name Value Normal Range MV E-wave Vmax 0.52 m/sec - MV deceleration time 281.21 msec - MV A-wave Vmax 0.56 m/sec - MV E:A ratio 0.93 ratio - Aortic Valve Name Value Normal Range AV Vmax 1.16 m/sec - AV VTI 20.91 cm - AV peak gradient 5.41 mmHg - AV mean gradient 2.57 mmHg - LVOT diameter 2.27 cm - LVOT Vmax 1.02 m/sec - LVOT VTI 16.61 cm - LVOT peak gradient 4.19 mmHg - LVOT mean gradient 1.55 mmHg - SV LVOT 66.96 ml - YOANA (continuity Vmax) 3.55 cm2 - YOANA (continuity VTI) 3.2 cm2 - Ascending Ao 2.9 cm - Pulmonic Valve/Qp:Qs Name Value Normal Range PV Vmax 1.12 m/sec - PV VTI 20.77 cm - PV peak gradient 5.01 mmHg - PV mean gradient 2.29 mmHg - RVOT Vmax 0.85 m/sec - RVOT VTI 17.82 cm - RVOT peak gradient 2.87 mmHg - Up/IV: Voiding Method Toilet IV Catheter Type [Left INT / Saline Lock Antecubital] Active Medications - Current Medications Current Medications: Generic Name Dose Route Start Last Admin Trade Name Freq PRN Reason Stop Dose Admin Acetaminophen 650 mg 06/13/20 18:43 Tylenol PO Q4H PRN Pain MILD(1-3)/Fever >100.5/CABRAL Aspirin 81 mg 06/17/20 13:00 06/18/20 09:12 Halfprin Ec PO 81 mg QDAY PHILIPPE Administration Atorvastatin Calcium 40 mg 06/17/20 22:00 06/17/20 21:45 Lipitor PO 40 mg QHS PHILPIPE Administration Clopidogrel Bisulfate 75 mg 06/18/20 10:00 06/18/20 09:12 Plavix PO 75 mg QDAY PHILIPPE Administration Hydrochlorothiazide 12.5 mg 06/15/20 14:00 06/18/20 09:12 Hctz PO 12.5 mg BID PHILIPPE Administration Ondansetron HCl 4 mg 06/13/20 18:43 Zofran IV Q8H PRN Nausea And Vomiting Prednisone 40 mg 06/16/20 10:00 06/18/20 09:13 Deltasone PO 40 mg QDAY PHILIPPE Administration Sodium Chloride 10 ml 06/13/20 22:00 06/18/20 09:13 Sodium Chloride Flush Syringe 10 Ml IV 10 ml BID PHILIPPE Administration Sodium Chloride 10 ml 06/13/20 18:43 Sodium Chloride Flush Syringe 10 Ml IV PRN PRN LINE FLUSH
[2020-06-18] MEDS: amLODIPine 5 MG TAB PO SCH (12:00)
--- NOTE | 2020-06-18 12:13 | Progress Note ---
Assessment and Plan Patient is a 39 y/o man w/ a h/o cocaine abuse and smoking, who p/w right sided numbness, imbalanced gait, and blurry vision. According to the patient's clinical findings, he has had a stroke, as is seen on MRI Brain. Given timing of symptom onset being about 3 weeks ago, findings on MRI coincide with that temporally. Lower likelihood of demyelinating disease, given pattern of restriction diffusion, as well as recent cocaine use, which increases risk of stroke. Plan: 1. Stroke: - CT head: No acute abnormalities. - CTA head/neck: No significant stenosis. - MRI Brain: Noted to have infarcts in right medulla and cerebellum. - Echo: EF 60-65%, LA normal size, bubble study negative. - Recommend dual antiplatelet therapy with aspirin 81 mg daily and Plavix 75 mg daily for 30 days, after which Plavix can be stopped. Discussed risks and benefits of dual antiplatelet therapy with patient, including hemorrhage, and patient agreed to take this. - Cont. statin. LDL goal <70 - Telemetry monitoring while in house - PT/OT/ST - DVT Ppx: Recommend lovenox - As etiology of stroke is cryptogenic, would recommend for patient to have l sahara-term cardiac monitoring with 30-day MCOT or ILR with cardiology as outpatient. - Given patient's visual deficits due to stroke, recommended that he does not drive until cleared by ophthalmology. Patient understood and accepted this. - Recommend for patient to follow up with neurology as outpatient in 3-4 weeks. 2. Hypertension: - Recommend BP goal of normotension, as it has been >48 hours since symptom onset. - Recommend for patient to be started on anti-hypertensive medication prior to a dmission, as BP has been elevated, indicating underlying HTN, which was previously undiagnosed. - Will sign off, as neurologic investigations are complete and treatment plan is in place. Please call with any questions. Thank you for allowing me to take part in the care of this patient. Jose Kunz MD Neurology This clinical encounter was provided via live telemedicine platform. Consult ative service was provided for neurology to support local providers. The Acute Teleneurology team should be contacted with any neurologic worsening or clinical changes, new test results, or new patient history that is reported to or discovered by the local team following completion of the teleneurology consultation, specifically that which has the potential to impact the consultative recommendations. Patient/Family was informed the Neurology Consult would happen via TeleHealth consult by way of interactive audio and video telecommunications and consented to receiving care in this manner. Due to the potential for life-threatening deterioration due to underlying neurologic illness, and limited resources available for patient care, telemedicine was used as means of patient care. Telemedicine consultation is limited in the extent of physical exam that can be virtually provided. Time spent evaluating patient includes time for face to face visit via telemedicine, review of medical records, imaging studies and discussion of findings with providers, the patient and/or family. Subjective Date of service: 06/18/20 Principal diagnosis: Stroke Interval history: No acute events overnight. Objective - Exam Narrative Exam: Patient is alert, awake, oriented x4, follows complex commands. No dysarthria or aphasia noted. PERRL, Right gaze preference, dysconjugate gaze noted when look towards left, right eye has limited left gaze, VFF, tongue midline, bilaterally intact to LT, no facial weakness noted. 5/5 strength in RUE/RLE/LLE, LUE 4/5. Bilaterally intact light touch. Bilaterally intact to FTN and HTS. - Vital Sign Vital Signs - 12hr 06/18/20 06/18/20 04:27 11:12 Temperature 98.1 F 97.3 F L Pulse Rate 64 73 Respiratory 16 16 Rate Blood Pressure 145/83 144/82 O2 Sat by Pulse 98 99 Oximetry - Laboratory Findings CBC and BMP: 06/13/20 12:33 06/14/20 04:27 Abnormal Lab Findings: Abnormal Labs 06/13/20 06/13/20 06/13/20 12:26 12:33 12:33 RBC 5.49 H MCV 81 L MCH 26 L Lymph % (Auto) 39.8 H [place] % (Auto) 8.8 H Carbon Dioxide 21 L BUN 6 L Glucose 133 H POC Glucose 122 H HDL Cholesterol Ur Specific [place] 06/13/20 06/14/20 06/17/20 19:28 04:27 15:25 RBC MCV MCH Lymph % (Auto) [place] % (Auto) Carbon Dioxide BUN Glucose 180 H POC Glucose HDL Cholesterol 79 H Ur Specific [place] 1.045 H
[2020-06-19 05:58] VITALS: BP 129/86
[2020-06-19] MEDS: CLOPIDOGREL 75 MG TAB PO SCH (09:03)
[2020-06-19] MEDS: ASPIRIN EC 81 MG TAB PO SCH (09:03)
[2020-06-19] MEDS: amLODIPine 5 MG TAB PO SCH (09:03)
[2020-06-19] MEDS: hydroCHLOROthiazide 12.5 MG CAP PO SCH (09:03)
[2020-06-19] MEDS: predniSONE 20 MG TAB PO SCH (09:03)
--- NOTE | 2020-06-19 09:37 | Discharge Summary ---
Providers - Providers Date of Admission: 06/16/20 11:25 Date of discharge: 06/19/20 Attending physician: JOSE RUIZ MD 06/13/20 17:08 Consult to Physician [CONS] Routine Comment: Consulting Provider: CRISTY ROMERO Physician Instructions: Reason For Exam: Opthalmoplegia 06/16/20 17:53 Consult to Physician [CONS] Routine Comment: Consulting Provider: LISANDRO TREVIZO Physician Instructions: Reason For Exam: Opthalmoplegia 06/17/20 07:29 Physical Therapy Evaluation and Treat [CONS] Routine Comment: Reason For Exam: Generalized weakness 06/17/20 07:30 Occupational Therapy Evaluate and Treat [CONS] Routine Comment: Reason For Exam: Generalized weakness 06/19/20 07:08 Occupational Therapy Evaluate and Treat [CONS] Routine Comment: need another session of treatment and education Reason For Exam: re-evaluation Primary care physician: ADOBE BLOCK MAKER Hospitalization Reason for admission: CVA, cocaine abuse, nicotine abuse, HTN Condition: Serious Pertinent studies: CT, MRI head, carotid Dopplers and echo Hospital course: History of present illness: 39 YO Male with Cocaine Dependence, Nicotine Dependence presents to ED for evaluation. Patient states that he has experienced blurred vision, difficulty with ambulation, and "I cannot get my eyes to uncross" for the past week. Patient states that he presents for evaluation at the insistence of his girlfriend. Patient acknowledges intermittent cocaine ingestion over the past week. Patient transported to [facility] via private vehicle for further care and evaluation of the aforementioned symptoms. Patient seen and evaluated in the emergency department. Lab and imaging studies reviewed. Tele-neurology consulted. Pt found to have Central Nystagmus, as well as symptoms consistent with Demyelinating Neuropathy, as well as small vessel ischemia. Pt placed in observation status and admitted to medical floor. Neurology consulted in ED. Patient denies fever, chills, headache, syncope, vertigo, trauma, chest pain, palpitation, productive cough, loss of bowel or bladder continence, skin rash, recent ill contacts, or known exposure to COVID-19. No prior admission for review. No medication listed for reconciliation at time of admission. Hospital course (1) CVA Current Visit: Yes Status: Acute Plan to address problem: -CT head was normal -MRI showed stroke in the medulla and cerebellum -Patient has unsteady gait -OT evaluated and recommended acute rehab -Neurology consult appreciated -Patient is on aspirin Plavix and statin (2) Nicotine dependence Current Visit: Yes Status: Acute Qualifiers: Nicotine product type: cigarettes Substance use status: in withdrawal Qualified Code(s): F17.213 - Nicotine dependence, cigarettes, with withdrawal Plan to address problem: Counseled counseled extensively about cessation of cocaine (3) Cocaine dependence Current Visit: Yes Status: Acute Qualifiers: Substance use status: uncomplicated Qualified Code(s): F14.20 - Cocaine dependence, uncomplicated Plan to address problem: Counseled extensively about cessation of cocaine Hypertension; -Patient was on HCTZ and I added amlodipine -Monitor and adjust as needed (4) DVT prophylaxis Current Visit: Yes Status: Acute Plan to address problem: SCD to bilateral lower extremities while in bed, patient is ambulatory. PT recommended acute rehab but patient is unfunded and we couldn't send him to rehab. He get PT OT treatment while he was here. This morning patient has some improvement and able to walk without leaning on the wall. Patient discharged home with home PT OT. Disposition: [id number] HOME UNDER HOME HL[facility] Time spent for discharge: 34 minutes - Discharge Diagnoses (1) Cocaine dependence Status: Acute Qualifiers: Substance use status: uncomplicated Qualified Code(s): F14.20 - Cocaine dependence, uncomplicated (2) Hypertension Status: Acute (3) Nicotine dependence Status: Acute Qualifiers: Nicotine product type: cigarettes Substance use status: in withdrawal Qualified Code(s): F17.213 - Nicotine dependence, cigarettes, with withdrawal (4) Stroke Status: Acute (5) Vertical nystagmus Status: Acute Core Measure Documentation - Palliative Care Palliative Care/ Comfort Measures: Not Applicable - Core Measures Any of the following diagnoses?: none Exam - Physical Exam Narrative exam: Not in cardiopulmonary distress. The patient appeared well nourished and normally developed. Vital signs as documented. Head exam is unremarkable. No scleral icterus . Neck is without jugular venous distension, thyromegaly, or carotid bruits. Lungs are clear to auscultation. Cardiac exam reveals regular rate and Rhythm. Abdominal exam reveals normal bowel sounds, nontender, no organomegaly. Extremities are nonedematous and both femoral and pedal pulses are normal. [employer]: Alert and oriented 3. No focal weakness. Unsteady gait. Patient have to hold the wall to walk. - Constitutional Vitals: Temp Pulse Resp BP Pulse Ox 98.2 F 68 20 129/86 99 06/19/20 05:56 06/19/20 05:56 06/19/20 05:56 06/19/20 05:56 06/19/20 05:56 Plan Activity: advance as tolerated Weight Bearing Status: Full Weight Bearing Diet: low cholesterol, low salt Additional Instructions: F/U at [facility] in 1-2 weeks Follow up with: PRIMARY MD ZUNILDA [Primary Care Provider] - 7 Days DORITA ANTON MD [Staff Physician] - 7 Days Prescriptions: AtorvaSTATin [Lipitor] 40 mg PO QHS #30 tablet amLODIPine 5 mg PO QDAY #30 tablet Aspirin EC [Halfprin EC] 81 mg PO QDAY #30 tablet hydroCHLOROthiazide [HCTZ] 12.5 mg PO BID #60 capsule Clopidogrel [Plavix] 75 mg PO QDAY #30 tablet
== END 2020-06-19 13:04 | disposition home health service (06) | DRG 65 ==
LOC: ED 12:05 → 3A 18:44 → OBSVTOIN 06-16 11:25
PROVIDERS: ADMIT Internal Medicine; ATTEND Internal Medicine
DX: I63.9 Cerebral infarction, unspecified (principal); F14.20 Cocaine dependence, uncomplicated; F17.213 Nicotine dependence, cigarettes, with withdrawal; G62.9 Polyneuropathy, unspecified; I10 Essential (primary) hypertension; H55.09 Other forms of nystagmus; R29.702 NIHSS score 2; Z82.49 Family history of ischemic heart disease and other diseases of the circulatory system
CPT/HCPCS: 36415; 70450; 70496; 70498; 70547; 70551; 80048; 80053; 80061; 80307; 80320; 81001; 82962; 83036; 84439; 84443; 85025; 93306; 96374; G0378; A9270-GY; G0480; J2920; J2930; J7512; Q9967

== ENCOUNTER 2022-02-24 12:42 | Inpatient (IN) | payer SELFPAY ==
[2022-02-24 16:29] LABS: Basophils # (Auto) 0.1 K/mm3 (0.0-0.1); Basophils % (Auto) 0.6 % (0.0-1.8); Eosinophils # (Auto) 0.1 K/mm3 (0.0-0.4); Lymphocytes # (Auto) 3.3 K/mm3 (1.2-5.4); Lymphocytes % (Auto) 34.8 % (13.4-35.0); Mean Corpuscular HGB Conc 31 % (32-34); Mean Corpuscular Volume 82 fl (84-94); Monocytes # (Auto) 0.9 K/mm3 (0.0-0.8); Platelet Count 259 K/mm3 (140-440); Red Blood Count 5.93 M/mm3 (3.65-5.03); Red Cell Distribution Width 13.9 % (13.2-15.2)
[2022-02-24 16:32] LABS: Hematocrit 48.4 % (35.5-45.6)
[2022-02-24 16:42] LABS: Creatine Kinase MB 3.8 ng/mL (0.0-4.0)
[2022-02-24 16:43] LABS: Alanine Aminotransferase 13 units/L (7-56); Albumin 3.9 g/dL (3.9-5); BUN/Creatinine Ratio 18; Blood Urea Nitrogen 21 mg/dL (9-20); Calcium 9.4 mg/dL (8.4-10.2); Hemolysis Index 2
[2022-02-24 16:44] LABS: INR 0.89 (0.87-1.13)
[2022-02-24 16:46] LABS: Partial Thromboplastin Time 29.7 Sec. (24.2-36.6); Thrombin Time 16.1 Sec. (15.1-19.6)
--- NOTE | 2022-02-24 17:31 | Cat Scan Report ---
CT head/brain wo con INDICATION / CLINICAL INFORMATION: 41 years Male; Stroke symptoms. TECHNIQUE: Routine CT head without contrast. All CT scans at this location are performed using CT dos e reduction for ALARA by means of automated exposure control. COMPARISON: The study is compared to the previous CT of 06/13/2020. FINDINGS: BRAIN / INTRACRANIAL CONTENTS: The motion significantly degrades the image quality. However, there is been interval development of decreased attenuation within the medial right frontal lobe from 0 concerning for developing acute right MING infarct. The edema measures approximately 2.5 cm in great est AP dimension with associated mild sulcal effacement. There is a lacunar infarct involving the head of the right caudate which has developed from the prior study though appears chronic. There is otherwise continued mild cerebral white matter disease most c onsistent with microvascular angiopathy. Is also suggestion of old chronic ischemic changes involving medial right cerebellum. There is no clear CT evidence of acute intracranial hemorrhage. The ventricular system is unchanged i n size and configuration. There is continued focus of calcification near the right MCA trifurcation w hich is unchanged. ORBITS: There is a focal defect involving medial right orbital wall which also appears to developed f rom the previous CT though may reflect previous trauma. SINUSES / MASTOIDS: The paranasal sinuses are otherwise clear. CRANIOCERVICAL JUNCTION: No significant abnormality. ADDITIONAL FINDINGS: None. IMPRESSION: 1. There has been interval development of edema involving medial right frontal lobe from 06/13/2020 con cerning for evolving right MING infarct as detailed above. 2. There is otherwise microvascular angiopathy as described without clear CT evidence of acute intrac ranial hemorrhage. Signer Name: Chandrakant Ruelas MD Signed: 02/24/2022 5:27 PM Workstation Name: [id number]
--- NOTE | 2022-02-24 17:41 | Cat Scan Report ---
CT angio head INDICATION / CLINICAL INFORMATION: 41 years Male; stroke sx. TECHNIQUE: Thin cut axial images obtained through the head during IV bolus contrast administration. S agittal, coronal, and 3 plane MIP reconstructions performed by the technologist. NASCET type criteria used evaluate stenoses. Automated exposure control utilized for radiation reduction purposes. COMPARISON: The study is compared to the previous CTA head of 06/13/2020. FINDINGS: INTERNAL CAROTID ARTERIES: There is mild atherosclerotic plaque involving the intracranial ICAs witho ut significant developing stenosis by NASCET criteria. VERTEBROBASILAR SYSTEM: The vertebrobasilar system also appears to demonstrate appropriate without si gnificant developing stenosis. CEREBRAL ARTERIES: The motion degrades image quality. However, there is irregularity of the A2 and A3 segments of the anterior cerebral arteries, greater on the right with notable segmental narrowing. A dditionally, edema was seen at within the medial right frontal lobe on the accompanying CT concerning for evolving infarct. There is continued notable irregularity of the P2 segment of the left [employer] compatible with atheroscler otic disease with progressing stenosis. Furthermore, there now appears to be occlusion of the more di stal segment and correlation would be needed regarding recent process in this patient with history of unspecified "stroke symptoms". There is milder irregularity of the middle cerebral arteries and branches indicative of atherosclerot ic disease. There is a persistent focus of calcification near the right MCA trifurcation with mild na rrowing which correlates with the prior study. There is no clear evidence of significant developing o cclusion of the middle cerebral arteries at. ANEURYSM: None identified. ADDITIONAL FINDINGS: Remainder of the surrounding soft tissues are grossly normal. IMPRESSION: The motion degrades the image quality. However, there is irregularity of the anterior cerebral arteri es, particularly on the right with segmental stenosis which has developed from the prior study. Addit ionally, edema was seen within the medial right frontal lobe on the accompanying CT concerning for ev olving infarct. 2. The findings remain compatible with atherosclerotic disease involving proximal left [employer] with incre asing stenosis involving the P2 segment as detailed above. Signer Name: Chandrakant Ruelas MD Signed: 02/24/2022 5:37 PM Workstation Name: [id number]
--- NOTE | 2022-02-24 17:45 | Cat Scan Report ---
CT angio neck INDICATION / CLINICAL INFORMATION: 41 years Male; stroke sx. TECHNIQUE: Thin cut axial images obtained through the head during IV bolus contrast administration. S agittal, coronal, and 3 plane MIP reconstructions performed by the technologist. NASCET type criteria used evaluate stenoses. All CT scans at this location are performed using CT dose reduction for ALAR A by means of automated exposure control. COMPARISON: The study is compared to previous CTA neck of 06/13/2020. FINDINGS: CAROTID ARTERIES: There is no significant developing stenosis involving cervical carotid arteries by NASCET criteria. There is very mild plaque along the posterior proximal right ICA. Again I, there is no significant narrowing. VERTEBRAL ARTERIES: The left vertebral artery is dominant. There is also no significant stenosis invo lving the paravertebral arteries. ARCH: There is developmental common origin of the brachiocephalic and left common carotid arteries. T here is no significant developing stenosis of the arch vessels. ADDITIONAL FINDINGS: Remainder of the surrounding soft tissues are grossly normal. IMPRESSION: There is no significant developing stenosis involving cervical carotid or vertebral arteries by NASCE T to criteria. Signer Name: Chandrakant Ruelas MD Signed: 02/24/2022 5:40 PM Workstation Name: [id number]
[2022-02-24] MEDS ORDERED: ASPIRIN 81 MG TAB CHEW PO ONE (18:14)
--- NOTE | 2022-02-24 18:51 | Emergency Department Report ---
Blank Doc - Documentation Documentation: [facility] Consult Note # Demographics Consult Type: Acute Stroke Level 2 (4.5-24 hrs) Patient Location: Emergency Room First Name: vania Last Name: luisa Date of : 1980 Age: 41 Gender: Male Facility: [facility] Time of Initial Page (Eastern Time): 02/24/2022, 18:09 Time of Return Call (Eastern Time): 02/24/2022, 18:10 # HPI History: 41yo M developed left sided tingling since last night. symptoms have improved. had weakness initally which is improved. CT shows an evolving stroke # PMH-FH-SH Past Medical History: hypertension # Data CTA Head: no large vessel occlusion preliminarily reviewed by me, please refer to radiology read for official reading CTA Neck: patent vessels preliminarily reviewed by me, please refer to radiology read for official reading # Plan Blood Pressure Management: nicardipine labetolol Target Blood Pressure: SBP < 220 DBP < 120 Labs: hemoglobin A1c lipid panel urine drug screen Imaging: (urgency: routine): CT Angiogram Head and CT Angiogram Neck MRI Brain without contrast Diagnostic Test: echo without bubble study LOAN if TTE unrevealing for a cause of stroke Therapy/Evaluation: NPO until swallow evaluation PT/OT evaluation speech/swallow consultation Medication: aspirin 81 mg daily start statin with goal of LDL < 70 DVT Prophylaxis: SCD Other: LDL < 70 If patient has any neurological deterioration please call me back immediately permissive hypertension telemetry monitoring I have discussed my recommendations with the referring provider Additional Recommendations: HIV, RPR, ESR, ROSIE, hypercoagulable work-up # Logistics Telemedicine: phone only
--- NOTE | 2022-02-24 19:06 | Emergency Department Report ---
ED Neuro Deficit HPI - General Chief Complaint: Neuro Symptoms/Deficit Stated Complaint: LEFT SIDE BODY NUMB Time Seen by Provider: 02/24/22 15:40 Source: patient Mode of arrival: Ambulatory Limitations: No Limitations - History of Present Illness Initial Comments: 41 years old with history of HTN complains of numbness to left leg since 9p.m. last night, states couldn't move his left leg at 11 p.m., then when he woke up this a.m. at about 1000, he was able to move it again. h/o CVA 2019 BS = 194 Cont to have numbness -: Sudden, hour(s) Location: left arm, left leg Presenting Symptoms: Present: Weak/Paralyzed One Side History of same: No Place: home Severity: mild Quality: weak, numb Improves With: time Worsens With: none On Anticoagulants: No Context: sudden onset Associated Symptoms: denies: denies other symptoms, chest pain, cough, head aches, loss of appetite, malise, nausea/vomiting, shortness of breath, syncope - Related Data Home Medications: Previous Rx's Medication Instructions Recorded Last Taken Type Aspirin EC [Halfprin EC] 81 mg PO QDAY #30 tablet 06/19/20 Unknown Rx AtorvaSTATin [Lipitor] 40 mg PO QHS #30 tablet 06/19/20 Unknown Rx Clopidogrel [Plavix] 75 mg PO QDAY #30 tablet 06/19/20 Unknown Rx amLODIPine 5 mg PO QDAY #30 tablet 06/19/20 Unknown Rx hydroCHLOROthiazide [HCTZ] 12.5 mg PO BID #60 capsule 06/19/20 Unknown Rx Allergies/Adverse Reactions: Allergies Allergy/AdvReac Type Severity Reaction Status Date / Time No Known Allergies Allergy Verified 02/24/22 15:20 ED Review of Systems ROS: Stated complaint: LEFT SIDE BODY NUMB Other details as noted in HPI Constitutional: denies: chills, fever Eyes: denies: eye pain, eye discharge, vision change ENT: denies: ear pain, throat pain Respiratory: denies: cough, shortness of breath, wheezing Cardiovascular: denies: chest pain, palpitations Endocrine: no symptoms reported Gastrointestinal: denies: abdominal pain, nausea, diarrhea Genitourinary: denies: urgency, dysuria Musculoskeletal: denies: back pain, joint swelling, arthralgia Skin: denies: rash, lesions Neurological: denies: headache, weakness, paresthesias Psychiatric: denies: anxiety, depression Hematological/Lymphatic: denies: easy bleeding, easy bruising ED Past Medical Hx - Past Medical History Hx Congestive Heart Failure: No Hx Diabetes: No Hx Asthma: No Hx COPD: No Additional medical history: Unble to obtain, AMS - Surgical History Additional Surgical History: Unable to obtain, AMS - Social History Smoking Status: Never Smoker - Medications Home Medications: Home Medications Medication Instructions Recorded Confirmed Last Taken Type Aspirin EC [Halfprin EC] 81 mg PO QDAY #30 tablet 06/19/20 Unknown Rx AtorvaSTATin [Lipitor] 40 mg PO QHS #30 tablet 06/19/20 Unknown Rx Clopidogrel [Plavix] 75 mg PO QDAY #30 tablet 06/19/20 Unknown Rx amLODIPine 5 mg PO QDAY #30 tablet 06/19/20 Unknown Rx hydroCHLOROthiazide [HCTZ] 12.5 mg PO BID #60 capsule 06/19/20 Unknown Rx ED Neuro Physical Exam - General Limitations: No Limitations General appearance: alert, in no apparent distress Suspected Stroke: Yes - Head Head exam: Present: atraumatic, normocephalic - Eye Eye exam: Present: normal appearance - ENT ENT exam: Present: mucous membranes moist - Neck Neck exam: Present: normal inspection - Respiratory Respiratory exam: Present: normal lung sounds bilaterally. Absent: respiratory distress - Cardiovascular Cardiovascular Exam: Present: regular rate, normal rhythm. Absent: systolic murmur, diastolic murmur, rubs, gallop - GI/Abdominal GI/Abdominal exam: Present: soft, normal bowel sounds - Rectal Rectal exam: Present: deferred - Extremities Exam Extremities exam: Present: normal inspection - Back Exam Back exam: Present: normal inspection - Neurological Exam Neurological exam: Present: alert, oriented X3 - NIHSS Assessment Interval: Baseline 1a. Level of Consciousness: alert/keenly responsive 1b. LOC Questions: answers both correctly 1c. LOC Commands: performs tasks correctly 2. Best Gaze: normal 3. Visual: no visual loss 4. Facial Palsy: normal symmetrical movement 5b. Motor Arm Right: no drift 5a. Motor Arm Left: no drift 6a. Motor Leg Left: no drift 6b. Motor Leg Right: no drift 7. Limb Ataxia: absent 8. Sensory: normal 9. Best Language: no aphasia 10. Dysarthria: normal 11. Extinction/Inattention: no abnormality Total Score: 0 Stroke Severity: No Stroke Symptoms - Psychiatric Psychiatric exam: Present: normal affect, normal mood - Skin Skin exam: Present: warm, dry, intact, normal color. Absent: rash ED Course Vital Signs 02/24/22 02/24/22 12:49 15:17 Temperature 98.2 F Pulse Rate 92 H Respiratory 18 Rate Blood Pressure 159/89 [Right] O2 Sat by Pulse 97 100 Oximetry - Lab Data Result diagrams: 02/24/22 15:56 02/24/22 15:56 Lab Results 02/24/22 02/24/22 02/24/22 Range/Units 12:48 15:56 15:56 WBC 9.4 (4.5-11.0) K/mm3 RBC 5.93 H (3.65-5.03) M/mm3 Hgb 15.0 (11.8-15.2) gm/dl Hct 48.4 H (35.5-45.6) % MCV 82 L (84-94) fl MCH 25 L (28-32) pg MCHC 31 L (32-34) % RDW 13.9 (13.2-15.2) % Plt Count 259 (140-440) K/mm3 Lymph % (Auto) 34.8 (13.4-35.0) % [place] % (Auto) 10.0 H (0.0-7.3) % Eos % (Auto) 1.0 (0.0-4.3) % Baso % (Auto) 0.6 (0.0-1.8) % Lymph # (Auto) 3.3 (1.2-5.4) K/mm3 [place] # (Auto) 0.9 H (0.0-0.8) K/mm3 Eos # (Auto) 0.1 (0.0-0.4) K/mm3 Baso # (Auto) 0.1 (0.0-0.1) K/mm3 Seg Neutrophils % 53.6 (40.0-70.0) % Seg Neutrophils # 5.1 (1.8-7.7) K/mm3 PT 13.0 (12.2-14.9) Sec. INR 0.89 (0.87-1.13) APTT 29.7 (24.2-36.6) Sec. Thrombin Time 16.1 (15.1-19.6) Sec. Sodium (137-145) mmol/L Potassium (3.6-5.0) mmol/L Chloride (98-107) mmol/L Carbon Dioxide (22-30) mmol/L Anion Gap mmol/L BUN (9-20) mg/dL Creatinine (0.8-1.3) mg/dL Estimated GFR ml/min BUN/Creatinine Ratio % Glucose (75-100) mg/dL POC Glucose 194 H (70-105) mg/dL Calcium (8.4-10.2) mg/dL Total Bilirubin (0.1-1.2) mg/dL AST (5-40) units/L ALT (7-56) units/L Alkaline Phosphatase (35-129) units/L Total Creatine Kinase (55-170) units/L CK-MB (CK-2) (0.0-4.0) ng/mL CK-MB (CK-2) Rel Index (0-4) Troponin T (0.00-0.029) ng/mL Total Protein (6.3-8.2) g/dL Albumin (3.9-5) g/dL Albumin/Globulin Ratio % 02/24/22 Range/Units 15:56 WBC (4.5-11.0) K/mm3 RBC (3.65-5.03) M/mm3 Hgb (11.8-15.2) gm/dl Hct (35.5-45.6) % MCV (84-94) fl MCH (28-32) pg MCHC (32-34) % RDW (13.2-15.2) % Plt Count (140-440) K/mm3 Lymph % (Auto) (13.4-35.0) % [place] % (Auto) (0.0-7.3) % Eos % (Auto) (0.0-4.3) % Baso % (Auto) (0.0-1.8) % Lymph # (Auto) (1.2-5.4) K/mm3 [place] # (Auto) (0.0-0.8) K/mm3 Eos # (Auto) (0.0-0.4) K/mm3 Baso # (Auto) (0.0-0.1) K/mm3 Seg Neutrophils % (40.0-70.0) % Seg Neutrophils # (1.8-7.7) K/mm3 PT (12.2-14.9) Sec. INR (0.87-1.13) APTT (24.2-36.6) Sec. Thrombin Time (15.1-19.6) Sec. Sodium 139 (137-145) mmol/L Potassium 4.1 (3.6-5.0) mmol/L Chloride 101.8 (98-107) mmol/L Carbon Dioxide 24 (22-30) mmol/L Anion Gap 17 mmol/L BUN 21 H (9-20) mg/dL Creatinine 1.2 (0.8-1.3) mg/dL Estimated GFR > 60 ml/min BUN/Creatinine Ratio 18 % Glucose 153 H (75-100) mg/dL POC Glucose (70-105) mg/dL Calcium 9.4 (8.4-10.2) mg/dL Total Bilirubin 0.50 (0.1-1.2) mg/dL AST 19 (5-40) units/L ALT 13 (7-56) units/L Alkaline Phosphatase 93 (35-129) units/L Total Creatine Kinase 98 (55-170) units/L CK-MB (CK-2) 3.8 (0.0-4.0) ng/mL CK-MB (CK-2) Rel Index 3.8 (0-4) Troponin T < 0.010 (0.00-0.029) ng/mL Total Protein 7.4 (6.3-8.2) g/dL Albumin 3.9 (3.9-5) g/dL Albumin/Globulin Ratio 1.1 % - EKG Data -: EKG Interpreted by [facility] EKG shows normal: sinus rhythm Rate: normal Interpretation: [facility] - Radiology Data Radiology results: image reviewed - Medical Decision Making work up showed evlving stroke on rt MING area spoe with neuro not TPA canddiate no LVO lesion asprin given will admit for CVA work up Critical care attestation.: If time is entered above; I have spent that time in minutes in the direct care of this critically ill patient, excluding procedure time. ED Disposition Clinical Impression: Left sided numbness, CVA (cerebral vascular accident) Disposition: ADMITTED INPATIENT Is pt being admited?: Yes Does the pt Need Aspirin: Yes Condition: Stable Referrals: PRIMARY CARE, [Primary Care Provider] - 3-5 Days
[2022-02-24 20:01] LABS: Bilirubin,Urine NEG (Negative); Blood,Urine NEG (Negative); Color,Urine Colorless (Yellow); Protein,Urine <15 mg/dL mg/dL (Negative); Urobilinogen,Urine < 2.0 mg/dL (<2.0); WBC,Urine < 1.0 /HPF (0.0-6.0)
[2022-02-24 20:05] LABS: Amphetamine Screen,Urine Negative; Benzodiazepines Screen,Urine Negative; Cannabinoid Screen,Urine Negative; Methadone Screen,Urine Negative; Opiate Screen,Urine Negative
[2022-02-24 20:28] LABS: Cocaine Screen,Urine Positive
[2022-02-24] MEDS ORDERED: METOCLOPRAMIDE 10 MG/2 ML INJ IV PRN (22:30)
[2022-02-24] MEDS ORDERED: ACETAMINOPHEN 325 MG TAB PO PRN (22:30)
[2022-02-24] MEDS ORDERED: ONDANSETRON 4 MG/2 ML INJ IV PRN (22:30)
[2022-02-24] MEDS ORDERED: oxyCODONE /ACETAMINOPHEN 5-325MG TAB PO PRN (22:30)
--- NOTE | 2022-02-24 22:38 | History and Physical Report ---
History of Present Illness Date of examination: 02/24/22 Date of admission: 02/24/22 Chief complaint: L sded weakness and numbness since yesterday History of present illness: - History of Present Illness Initial Comments: 41 years old with history of HTN complains of numbness to left leg since 9p.m. last night, states couldn't move his left leg at 11 p.m., then when he woke up this a.m. at about 1000, he was able to move it again. h/o CVA 2019 BS = 194 Cont to have numbness -: Sudden, hour(s) Location: left arm, left leg Presenting Symptoms: Present: Weak/Paralyzed One Side History of same: No Place: home Severity: mild Quality: weak, numb Improves With: time Worsens With: none On Anticoagulants: No Context: sudden onset Associated Symptoms: denies: denies other symptoms, chest pain, cough, headaches, loss of appetite, malise, nausea/vomiting, shortness of breath, syncope - Related Data Home Medications: Previous Rx's Medication Instructions Recorded Last Taken Type Aspirin EC [Halfprin EC] 81 mg PO QDAY #30 tablet 06/19/20 Unknown Rx AtorvaSTATin [Lipitor] 40 mg PO QHS #30 tablet 06/19/20 Unknown Rx Clopidogrel [Plavix] 75 mg PO QDAY #30 tablet 06/19/20 Unknown Rx amLODIPine 5 mg PO QDAY #30 tablet 06/19/20 Unknown Rx hydroCHLOROthiazide [HCTZ] 12.5 mg PO BID #60 capsule 06/19/20 Unknown Rx Allergies/Adverse Reactions: Allergies Allergy/AdvReac Type Severity Reaction Status Date / Time No Known Allergies Allergy Verified 02/24/22 15:20 - Past Medical History --Additional medical history: Unble to obtain, AMS - Surgical History --Additional Surgical History: Unable to obtain, AMS - Social History --Smoking Status: Never Smoker - Medications --Home Medications: Home Medications Medication Instructions Recorded Confirmed Last Taken Type Aspirin EC [Halfprin EC] 81 mg PO QDAY #30 tablet 06/19/20 Unknown Rx AtorvaSTATin [Lipitor] 40 mg PO QHS #30 tablet 06/19/20 Unknown Rx Clopidogrel [Plavix] 75 mg PO QDAY #30 tablet 06/19/20 Unknown Rx amLODIPine 5 mg PO QDAY #30 tablet 06/19/20 Unknown Rx hydroCHLOROthiazide [HCTZ] 12.5 mg PO BID #60 capsule 06/19/20 Unknown Rx Review of Systems ROS: Stated complaint: LEFT SIDE BODY NUMB Other details as noted in HPI Constitutional: denies: chills, fever Eyes: denies: eye pain, eye discharge, vision change ENT: denies: ear pain, throat pain Respiratory: denies: cough, shortness of breath, wheezing Cardiovascular: denies: chest pain, palpitations Endocrine: no symptoms reported Gastrointestinal: denies: abdominal pain, nausea, diarrhea Genitourinary: denies: urgency, dysuria Musculoskeletal: denies: back pain, joint swelling, arthralgia Skin: denies: rash, lesions Neurological: denies: headache, weakness, paresthesias Psychiatric: denies: anxiety, depression Hematological/Lymphatic: denies: easy bleeding, easy bruising Medications and Allergies Allergies Allergy/AdvReac Type Severity Reaction Status Date / Time No Known Allergies Allergy Verified 02/24/22 15:20 Home Medications Medication Instructions Recorded Confirmed Last Taken Type Aspirin EC [Halfprin EC] 81 mg PO QDAY #30 tablet 06/19/20 Unknown Rx AtorvaSTATin [Lipitor] 40 mg PO QHS #30 tablet 06/19/20 Unknown Rx Clopidogrel [Plavix] 75 mg PO QDAY #30 tablet 06/19/20 Unknown Rx amLODIPine 5 mg PO QDAY #30 tablet 06/19/20 Unknown Rx hydroCHLOROthiazide [HCTZ] 12.5 mg PO BID #60 capsule 06/19/20 Unknown Rx Exam - Constitutional Vitals: Temp Pulse Resp BP Pulse Ox 98.2 F 92 H 18 159/89 100 02/24/22 12:49 02/24/22 12:49 02/24/22 12:49 02/24/22 12:49 02/24/22 15:17 General appearance: Present: no acute distress, well-nourished - EENT Eyes: Present: PERRL ENT: hearing intact, clear oral mucosa - Neck Neck: Present: supple, normal ROM - Respiratory Respiratory effort: normal Respiratory: bilateral: CTA - Cardiovascular Heart rate: 78 Rhythm: regular Heart Sounds: Present: S1 & S2. Absent: rub, click - Extremities Extremities: pulses symmetrical, No edema Peripheral Pulses: within normal limits - Abdominal General gastrointestinal: Present: soft, non-tender, non-distended, normal bowel sounds Male genitourinary: Present: normal - Integumentary Integumentary: Present: clear, warm, dry - Musculoskeletal Musculoskeletal: left sided weakness - Psychiatric Psychiatric: appropriate mood/affect, intact judgment & insight - Neurologic Neurologic: CNII-XII intact, focal deficits (L side numbness in LLE) - Allied Health Allied health notes reviewed: nursing, case management HEART Score - HEART Score Troponin: Troponin T < 0.010 ng/mL (0.00-0.029) 02/24/22 15:56 Results - Labs CBC & Chem 7: 02/25/22 07:11 02/24/22 15:56 Labs: Laboratory Last Values WBC 9.4 K/mm3 (4.5-11.0) 02/24/22 15:56 RBC 5.93 M/mm3 (3.65-5.03) H 02/24/22 15:56 Hgb 15.0 gm/dl (11.8-15.2) 02/24/22 15:56 Hct 48.4 % (35.5-45.6) H 02/24/22 15:56 MCV 82 fl (84-94) L 02/24/22 15:56 MCH 25 pg (28-32) L 02/24/22 15:56 MCHC 31 % (32-34) L 02/24/22 15:56 RDW 13.9 % (13.2-15.2) 02/24/22 15:56 Plt Count 259 K/mm3 (140-440) 02/24/22 15:56 Lymph % (Auto) 34.8 % (13.4-35.0) 02/24/22 15:56 [place] % (Auto) 10.0 % (0.0-7.3) H 02/24/22 15:56 Eos % (Auto) 1.0 % (0.0-4.3) 02/24/22 15:56 Baso % (Auto) 0.6 % (0.0-1.8) 02/24/22 15:56 Lymph # (Auto) 3.3 K/mm3 (1.2-5.4) 02/24/22 15:56 [place] # (Auto) 0.9 K/mm3 (0.0-0.8) H 02/24/22 15:56 Eos # (Auto) 0.1 K/mm3 (0.0-0.4) 02/24/22 15:56 Baso # (Auto) 0.1 K/mm3 (0.0-0.1) 02/24/22 15:56 Seg Neutrophils % 53.6 % (40.0-70.0) 02/24/22 15:56 Seg Neutrophils # 5.1 K/mm3 (1.8-7.7) 02/24/22 15:56 PT 13.0 Sec. (12.2-14.9) 02/24/22 15:56 INR 0.89 (0.87-1.13) 02/24/22 15:56 APTT 29.7 Sec. (24.2-36.6) 02/24/22 15:56 Thrombin Time 16.1 Sec. (15.1-19.6) 02/24/22 15:56 Sodium 139 mmol/L (137-145) 02/24/22 15:56 Potassium 4.1 mmol/L (3.6-5.0) 02/24/22 15:56 Chloride 101.8 mmol/L (98-107) 02/24/22 15:56 Carbon Dioxide 24 mmol/L (22-30) 02/24/22 15:56 Anion Gap 17 mmol/L 02/24/22 15:56 BUN 21 mg/dL (9-20) H 02/24/22 15:56 Creatinine 1.2 mg/dL (0.8-1.3) 02/24/22 15:56 Estimated GFR > 60 ml/min 02/24/22 15:56 BUN/Creatinine Ratio 18 % 02/24/22 15:56 Glucose 153 mg/dL (75-100) H 02/24/22 15:56 POC Glucose 194 mg/dL (70-105) H 02/24/22 12:48 Calcium 9.4 mg/dL (8.4-10.2) 02/24/22 15:56 Total Bilirubin 0.50 mg/dL (0.1-1.2) 02/24/22 15:56 AST 19 units/L (5-40) 02/24/22 15:56 ALT 13 units/L (7-56) 02/24/22 15:56 Alkaline Phosphatase 93 units/L (35-129) 02/24/22 15:56 Total Creatine Kinase 98 units/L (55-170) 02/24/22 15:56 CK-MB (CK-2) 3.8 ng/mL (0.0-4.0) 02/24/22 15:56 CK-MB (CK-2) Rel Index 3.8 (0-4) 02/24/22 15:56 Troponin T < 0.010 ng/mL (0.00-0.029) 02/24/22 15:56 Total Protein 7.4 g/dL (6.3-8.2) 02/24/22 15:56 Albumin 3.9 g/dL (3.9-5) 02/24/22 15:56 Albumin/Globulin Ratio 1.1 % 02/24/22 15:56 Urine Color Colorless (Yellow) 02/24/22 Unknown Urine Turbidity Clear (Clear) 02/24/22 Unknown Urine pH 6.0 (5.0-7.0) 02/24/22 Unknown Ur Specific [place] 1.029 (1.003-1.030) 02/24/22 Unknown Urine Protein <15 mg/dl mg/dL (Negative) 02/24/22 Unknown Urine Glucose (UA) Neg mg/dL (Negative) 02/24/22 Unknown Urine Ketones Neg mg/dL (Negative) 02/24/22 Unknown Urine Blood Neg (Negative) 02/24/22 Unknown Urine Nitrite Neg (Negative) 02/24/22 Unknown Urine Bilirubin Neg (Negative) 02/24/22 Unknown Urine Urobilinogen < 2.0 mg/dL (<2.0) 02/24/22 Unknown Ur Leukocyte Esterase Neg (Negative) 02/24/22 Unknown Urine WBC (Auto) < 1.0 /HPF (0.0-6.0) 02/24/22 Unknown Urine RBC (Auto) 1.0 /HPF (0.0-6.0) 02/24/22 Unknown U Epithel Cells (Auto) < 1.0 /HPF (0-13.0) 02/24/22 Unknown Urine Opiates Screen Negative 02/24/22 Unknown Urine Methadone Screen Negative 02/24/22 Unknown Ur Barbiturates Screen Negative 02/24/22 Unknown Ur Phencyclidine Scrn Negative 02/24/22 Unknown Ur Amphetamines Screen Negative 02/24/22 Unknown U Benzodiazepines Scrn Negative 02/24/22 Unknown Urine Cocaine Screen Positive 02/24/22 Unknown U Marijuana (THC) Screen Negative 02/24/22 Unknown Drugs of Abuse Note Disclamer 02/24/22 Unknown - Imaging and Cardiology Imaging and Cardiology: Head CT There has been interval development of edema involving the medial right frontal lobe from concerning for evolving right anterior cerebral artery infarct as detailed above. There is otherwise microvascular angiopathy as described without CT evidence of acute intracranial hemorrhage. Head and neck CTA There is irregularity of the anterior cerebral arteries, particularly on the right with segmental stenosis which is at the level from the prior study. Additional edema was seen within the mental medial right frontal lobe on the accompanying CT concerning for evolving infarct. The findings remain compatible with atherosclerotic disease involving proximal [employer] with increasing stenosis involving the P2 segment as detailed above. Neck CTA no significant developing stenosis involving cervical carotid or vertebral arteries by NASCET criteria. Assessment and Plan Advance Directives: Yes (Full code) VTE prophylaxis?: Chemical Plan of care discussed with patient/family: Yes - Patient Problems (1) Acute CVA (cerebrovascular accident) Current Visit: Yes Status: Acute Plan to address problem: CT scan changes on the right side MRI brain to delineate infarct Patient has numbness and weakness in both left and left lower extremities. Weakness is resolved but numbness persists. Possible thalamic infarct. Patient uses cocaine which may be contributory factor. Neurology consult requested. (2) Hypertension Current Visit: Yes Status: Chronic Qualifiers: Hypertension type: primary hypertension Qualified Code(s): I10 - Essential (primary) hypertension Plan to address problem: On losartan (3) Hyperlipidemia Current Visit: Yes Status: Chronic Qualifiers: Hyperlipidemia type: mixed hyperlipidemia Qualified Code(s): E78.2 - Mixed hyperlipidemia Plan to address problem: On high intensity statins (4) Cocaine abuse Current Visit: Yes Status: Acute Plan to address problem: Patient counseled about cocaine use and major contributor of vasospasm (5) DVT prophylaxis Current Visit: Yes Status: Acute Plan to address problem: On heparin and GI prophylaxis (6) Advance care planning Current Visit: Yes Status: Acute Plan to address problem: Disease education conducted, care plan discussed, diagnosis discussed, prognosis discussed. Patient is full code. Patient acknowledges understanding and agreement with care plan. +30 minutes.
[2022-02-24] MEDS: HEPARIN 5,000 UNIT/1 ML VIAL SUB-Q SCH (23:42)
[2022-02-25 07:46] LABS: Basophils # (Auto) 0.1 K/mm3 (0.0-0.1); Basophils % (Auto) 0.7 % (0.0-1.8); Eosinophils # (Auto) 0.2 K/mm3 (0.0-0.4); Eosinophils % (Auto) 2.9 % (0.0-4.3); Hematocrit 44.7 % (35.5-45.6); Hemoglobin 14.3 gm/dl (11.8-15.2); Lymphocytes # (Auto) 3.6 K/mm3 (1.2-5.4); Lymphocytes % (Auto) 42.6 % (13.4-35.0); Mean Corpuscular HGB Conc 32 % (32-34); Mean Corpuscular Volume 80 fl (84-94); Monocytes # (Auto) 0.8 K/mm3 (0.0-0.8); Monocytes % (Auto) 9.1 % (0.0-7.3); Platelet Count 271 K/mm3 (140-440); Red Blood Count 5.59 M/mm3 (3.65-5.03)
[2022-02-25 08:12] LABS: Alanine Aminotransferase 19 units/L (7-56); Albumin 4.1 g/dL (3.9-5); BUN/Creatinine Ratio 12; Blood Urea Nitrogen 13 mg/dL (9-20); Calcium 9.1 mg/dL (8.4-10.2); Chol/HDL Ratio 3.54 %; HDL Cholesterol 42 mg/dL (40-59); Hemolysis Index 9; LDL Cholesterol,Direct 83 mg/dL (50-130)
[2022-02-25] MEDS ORDERED: hydroCHLOROthiazide 12.5 MG CAP PO SCH (10:00)
[2022-02-25] MEDS ORDERED: ASPIRIN EC 81 MG TAB PO SCH (10:00)
--- NOTE | 2022-02-25 10:54 | Magnetic Resonance Report ---
MRI BRAIN WITHOUT CONTRAST INDICATION / CLINICAL INFORMATION: stroke, LT SIDED WEAKNESS. TECHNIQUE: Multisequence, multiplanar images were obtained. COMPARISON: CT head 02/14/2022. MR brain dated 06/15/2020. FINDINGS: CEREBRAL and CEREBELLAR HEMISPHERES: An area of diffusion restriction in the medial right frontal lob e measures up to 6.1 x 2.0 cm in axial plane within the right MING distribution. This area demonstrate s decreased signal on ADC map. There are also a few small foci of cortical diffusion restriction in t he posterior right frontal lobe measuring less than 1 cm. No additional areas of diffusion restrictio n are identified. There are scattered foci of increased T2 signal in the periventricular and subcorti marsha white matter bilaterally consistent with chronic microvascular ischemic change. A few subcentimet er chronic infarcts are identified in the inferomedial right cerebellar hemisphere. No large chronic infarct. No evidence of mass or mass effect. No midline shift. No acute hemorrhage. No extra-axial fluid collection. VENTRICLES: Normal in size and configuration for age. VISUALIZED ORBITS: No significant abnormality. VISUALIZED PARANASAL SINUSES: Mild chronic mucosal thickening is noted in the ethmoid sinuses. The re maining sinuses and mastoid air cells are clear. ADDITIONAL FINDINGS: None. IMPRESSION: Subacute ischemia is identified in the right anterior cerebral artery territory as described above. T his correlates with the findings seen on recent CT. No evidence for hemorrhage, mass or mass effect. Chronic white matter changes. Chronic focal infarcts in the right inferomedial cerebellum. Mild chronic ethmoid sinusitis. Signer Name: Matt Lim Jr, MD Signed: 02/25/2022 10:49 AM Workstation Name: [id number]
[2022-02-25] MEDS: amLODIPine 5 MG TAB PO SCH (11:57)
[2022-02-25] MEDS: ASPIRIN 325 MG TAB PO SCH (11:57)
[2022-02-25] MEDS: FAMOTIDINE 20 MG TAB PO SCH ×2 (11:58→21:28)
[2022-02-25] MEDS: HEPARIN 5,000 UNIT/1 ML VIAL SUB-Q SCH ×2 (11:58→21:29)
[2022-02-25] MEDS: hydroCHLOROthiazide 25 MG TAB PO SCH (11:58)
[2022-02-25] MEDS: CLOPIDOGREL 75 MG TAB PO SCH (11:59)
--- NOTE | 2022-02-25 17:05 | Vascular Lab Report ---
DUPLEX DOPPLER ULTRASOUND CAROTID, BILATERAL INDICATION / CLINICAL INFORMATION: stroke. COMPARISON: CTA neck performed yesterday. FINDINGS: RIGHT CAROTID: Mild to moderate noncalcified atherosclerotic plaque. - PLAQUE ESTIMATE (%): < 50% - CCA velocity: 62 cm/sec. - ICA peak systolic velocity: 63 cm/sec. - ICA/CCA PSV Ratio: Less than 2. Right Vertebral Artery: Antegrade flow. LEFT CAROTID: Minimal atherosclerotic plaque. - PLAQUE ESTIMATE (%): < 50% - CCA velocity: 72 cm/sec. - ICA peak systolic velocity: 58 cm/sec. - ICA/CCA PSV Ratio: Less than 2. Left Vertebral Artery: Antegrade flow. IMPRESSION: 1. Right Internal Carotid Artery: Less than 50% diameter stenosis. 2. Left Internal Carotid Artery: Less than 50% diameter stenosis. Velocity criteria are extrapolated from diameter data as defined by the Society of Radiologists in Ul trasound Consensus Conference, Radiology 2003; 229;340-346. NO STENOSIS (NORMAL) - Plaque = none; ICA PSV < 125 cm/sec; ICA/CCA PSV Ratio < 2.0 <50% STENOSIS - Plaque < 50%; ICA PSV < 125 cm/sec; ICA/CCA PSV Ratio < 2.0 50-69% STENOSIS - Plaque > 50%; ICA PSV = 125-230 cm/sec; ICA/CCA PSV Ratio = 2.0-4.0 >70% BUT <100% STENOSIS - Plaque > 50%; ICA PSV > 230 cm/sec; ICA/CCA PSV Ratio > 4.0 NEAR OCCLUSION - Plaque = visible lumen; ICA PSV = high/low/none; ICA/CCA PSV Ratio = variable TOTAL OCCLUSION - Plaque = no lumen; ICA PSV = none; ICA/CCA PSV Ratio = N/A Scribed by: Amy Peña RDMS, RVT, RMSKS Scribed: 02/25/2022 3:42 PM I have reviewed the images, agree with this report, and edited this report as needed. Signer Name: Martin Cisneros MD Signed: 02/25/2022 5:00 PM Workstation Name: [id number]
--- NOTE | 2022-02-25 19:35 | Consultation ---
History of Present Illness Consult date: 02/25/22 Reason for Consult: Acute Ischemic Stroke Chief complaint: Left Leg Weakness/Numbness History of present illness: 41 yo male with stroke (2019/2020 w/ "eyes going back and forth" and residual left arm numbness/weakness), hypertension, cocaine abuse, tobacco abuse, noncompliance with medications, presenting with acute left leg numbness/weakness. He presented outside the tnk/thrombectomy window. He notes taking aspirin at home. Past History Past Medical History: hypertension, stroke Past Surgical History: No surgical history Social history: no significant social history, smoking Family history: hypertension Medications and Allergies Allergies Allergy/AdvReac Type Severity Reaction Status Date / Time No Known Allergies Allergy Verified 02/24/22 15:20 Home Medications Medication Instructions Recorded Confirmed Last Taken Type Aspirin EC [Halfprin EC] 81 mg PO QDAY #30 tablet 06/19/20 02/25/22 02/23/22 Rx AtorvaSTATin [Lipitor] 40 mg PO QHS #30 tablet 06/19/20 02/25/22 02/23/22 Rx Clopidogrel [Plavix] 75 mg PO QDAY #30 tablet 06/19/20 02/25/22 02/23/22 Rx amLODIPine 5 mg PO QDAY #30 tablet 06/19/20 02/25/22 02/23/22 Rx hydroCHLOROthiazide [HCTZ] 12.5 mg PO BID #60 capsule 06/19/20 02/25/22 02/23/22 Rx Active Meds: Active Medications Acetaminophen (Acetaminophen 325 Mg Tab) 650 mg PO Q4H PRN PRN Reason: Pain MILD(1-3)/Fever >100.5/CABRAL Amlodipine Besylate (Amlodipine 5 Mg Tab) 5 mg PO QDAY [facility] Last Admin: 02/25/22 11:57 Dose: 5 mg Aspirin (Aspirin 325 Mg Tab) 325 mg PO QDAY [facility] Last Admin: 02/25/22 11:57 Dose: 325 mg Atorvastatin Calcium (Atorvastatin 40 Mg Tab) 40 mg PO QHS [facility] Clopidogrel Bisulfate (Clopidogrel 75 Mg Tab) 75 mg PO QDAY [facility] Last Admin: 02/25/22 11:59 Dose: 75 mg Famotidine (Famotidine 20 Mg Tab) 20 mg PO BID [facility] Last Admin: 02/25/22 11:58 Dose: 20 mg Heparin Sodium (Porcine) (Heparin 5,000 Unit/1 Ml Vial) 5,000 unit SUB-Q Q12HR [facility] Last Admin: 02/25/22 11:58 Dose: 5,000 unit Hydrochlorothiazide (Hydrochlorothiazide 25 Mg Tab) 25 mg PO QDAY [facility] Last Admin: 02/25/22 11:58 Dose: 25 mg Metoclopramide HCl (Metoclopramide 10 Mg/2 Ml Inj) 10 mg IV Q6H PRN PRN Reason: Nausea And Vomiting Ondansetron HCl (Ondansetron 4 Mg/2 Ml Inj) 4 mg IV Q8H PRN PRN Reason: Nausea And Vomiting Oxycodone/Acetaminophen (Oxycodone /Acetaminophen 5-325mg Tab) 1 tab PO Q6H PRN PRN Reason: Pain, Moderate (4-6) Sodium Chloride (Sodium Chloride 0.9% 10 Ml Flush Syringe) 10 ml IV BID [facility] Last Admin: 02/25/22 11:58 Dose: 10 ml Sodium Chloride (Sodium Chloride 0.9% 10 Ml Flush Syringe) 10 ml IV PRN PRN PRN Reason: LINE FLUSH Sodium Chloride (Sodium Chloride 0.9% 10 Ml Flush Syringe) 10 ml IV PRN PRN PRN Reason: LINE FLUSH Review of Systems All systems: negative (as per hpi;) Physical Examination - Vital Signs Vital Signs: Vital Signs Temp Pulse Resp BP Pulse Ox 98.2 F 92 H 18 159/89 97 02/24/22 12:49 02/24/22 12:49 02/24/22 12:49 02/24/22 12:49 02/24/22 12:49 - Physical Exam Narrative exam: Gen: nad, well-nourished; Head: normocephalic; Eyes: no gaze deviation; no ptosis; ENT: normal vocalization; CVS: warm and well-perfused; Pulm: no respiratory distress; GI: appears non-distended; Ext: no cyanosis appreciated at distal extremities; Skin: no acute rash at distal extremities; Heme: no pathologic ecchymosis appreciated at distal extremities; Neuro: alert, oriented to name, age, month, year, surroundings, no dysarthria, no aphasia, CN 2 - PERRL, visual jorgensen grossly intact, CN 3, 4, 6 - EOMI, CN 5 - facial sensation symmetric to light touch, CN 7 - facial movement symmetric, CN 8 - hearing grossly intact, CN 9, 10 - uvula midline, CN 11 symmetric shoulder movement, CN 12 - tongue midline; Motor - at least 4-/5 at distal BUE; 3/5 at lle (drift to bed); 4+/5 at rle; Sensory - light touch decreased at left arm, Cerebellar - fnf intact w/ difficulty w/ left hts, Gait - deferred secondary to high fall risk; NIHSS (1a.) Level of Consciousness:0 (1b.) LOC Questions:0 (1c.) LOC Commands:0 (2.) Best Gaze:0 (3.) Visual:0 (4.) Facial Palsy:0 (5a.) Motor Arm, Left:0 (5b.) Motor Arm, Right:0 (6a.) Motor Leg, Left:2 (6b.) Motor Leg, Right:0 (7.) Limb Ataxia:0 (8.) Sensory:1 (9.) Best Language:0 (10.) Dysarthria:0 (11.) Extinction and Inattention:0 NIHSS Total Score: 3 Results - Laboratory Findings CBC and BMP: 02/25/22 07:11 02/25/22 07:11 Abnormal Lab Findings: Abnormal Labs 02/24/22 02/24/22 02/24/22 12:48 15:56 15:56 RBC 5.93 H Hct 48.4 H MCV 82 L MCH 25 L MCHC 31 L Lymph % (Auto) [place] % (Auto) 10.0 H [place] # (Auto) 0.9 H Sodium BUN 21 H Glucose 153 H POC Glucose 194 H 02/25/22 02/25/22 07:11 07:11 RBC 5.59 H Hct MCV 80 L MCH 26 L MCHC Lymph % (Auto) 42.6 H [place] % (Auto) 9.1 H [place] # (Auto) Sodium 136 L BUN Glucose 125 H POC Glucose Assessment and Plan 41 yo male with stroke ( w/ "eyes going back and forth" and residual left arm numbness/weakness), hypertension, tobacco abuse, noncompliance with medications, presenting with acute left leg numbness/weakness. 1. Acute Ischemic Stroke (cardioembolic due to cocaine abuse and/or ICADx): ASA 325 mg PO qday; Plavix 75 mg po qday x 90days; normal TTEcho, confirm HgA1C, telemetry, NIHSS [id number]; SBP goal 160-200 mmHg and DBP 80-100 mmHg x48 hours. Statin therapy for a goal LDL of 70, when patient passes swallow evaluation. PT/OT evaluation/monitoring. Long-term risk-factor modification, including a strict diet/exercise regimen for secondary stroke prophylaxis. Stroke education prior to discharge. 2. Hypertension - goal SBP 160-200 mmHg and DBP 80-100 mmHg x 48 hours 3. Cerebrovascular Disease - dual antiplatelet therapy x 90 days if no contraindications and statin therapy with diet/exercise and lifestyle modifications. 4. Dyslipidemia - goal LDL of 70 w/ statin therapy if no contraindications. 5. Acute Left Leg Paresis w/ Unsteady Gait - pt/ot evaluation/monitoring. 6. Tobacco Abuse / Cocaine Abuse - smoking cessation / detox needed. 7. Followup with Stroke Neurology in 6 weeks. Kashif Allen MD Neurology
--- NOTE | 2022-02-25 20:39 | Progress Note ---
Assessment and Plan - Patient Problems (1) Acute CVA (cerebrovascular accident) Current Visit: Yes Status: Acute Plan to address problem: CT scan changes on the right side MRI brain to delineate infarct Patient has numbness and weakness in both left and left lower extremities. Weakness is resolved but numbness persists. Possible thalamic infarct. Patient uses cocaine which may be contributory factor. Neurology consult requested. (2) Hypertension Current Visit: Yes Status: Chronic Qualifiers: Hypertension type: primary hypertension Qualified Code(s): I10 - Essential (primary) hypertension Plan to address problem: On losartan (3) Hyperlipidemia Current Visit: Yes Status: Chronic Qualifiers: Hyperlipidemia type: mixed hyperlipidemia Qualified Code(s): E78.2 - Mixed hyperlipidemia Plan to address problem: On high intensity statins (4) Cocaine abuse Current Visit: Yes Status: Acute Plan to address problem: Patient counseled about cocaine use and major contributor of vasospasm (5) DVT prophylaxis Current Visit: Yes Status: Acute Plan to address problem: On heparin and GI prophylaxis (6) Advance care planning Current Visit: Yes Status: Acute Plan to address problem: Disease education conducted, care plan discussed, diagnosis discussed, prognosis discussed. Patient is full code. Patient acknowledges understanding and agreement with care plan. +30 minutes. (7) Discharge planning issues Current Visit: Yes Status: Acute Subjective Date of service: 02/25/22 Objective - Constitutional Vitals: Vital Signs - 12hr 02/25/22 02/25/22 02/25/22 10:04 11:43 14:04 Temperature 97.6 F Pulse Rate 65 69 Respiratory 18 Rate Blood Pressure 151/101 O2 Sat by Pulse 97 97 Oximetry 02/25/22 02/25/22 02/25/22 16:29 18:00 19:37 Temperature 97.6 F 98.5 F Pulse Rate 68 68 76 Respiratory 18 16 Rate Blood Pressure 140/86 152/96 O2 Sat by Pulse 97 99 Oximetry General appearance: Present: no acute distress, well-nourished - EENT Eyes: PERRL, EOM intact ENT: hearing intact, clear oral mucosa Ears: bilateral: normal - Neck Neck: supple, normal ROM - Respiratory Respiratory effort: normal Respiratory: bilateral: CTA - Breasts Breasts: normal - Cardiovascular Rhythm: regular Heart Sounds: Present: S1 & S2. Absent: gallop, rub Extremities: pulses intact, No edema, normal color, Full ROM - Gastrointestinal General gastrointestinal: Present: soft, non-tender, non-distended, normal bowel sounds - Genitourinary Male genitourinary: normal - Integumentary Integumentary: clear, warm, dry - Musculoskeletal Musculoskeletal: 1, strength equal bilaterally - Neurologic Neurologic: moves all extremities - Psychiatric Psychiatric: memory intact, appropriate mood/affect, intact judgment & insight - Labs CBC & Chem 7: 02/25/22 07:11 02/25/22 07:11 Labs: Abnormal lab results 02/25/22 02/25/22 Range/Units 07:11 07:11 RBC 5.59 H (3.65-5.03) M/mm3 MCV 80 L (84-94) fl MCH 26 L (28-32) pg Lymph % (Auto) 42.6 H (13.4-35.0) % [place] % (Auto) 9.1 H (0.0-7.3) % Sodium 136 L (137-145) mmol/L Glucose 125 H (75-100) mg/dL HEART Score - HEART Score Troponin: Troponin T < 0.010 ng/mL (0.00-0.029) 02/24/22 15:56
--- NOTE | 2022-02-25 20:40 | Discharge Summary ---
Providers - Providers Date of Admission: 02/24/22 22:30 Date of discharge: 02/27/22 Attending physician: JONATHAN GUNN 02/24/22 22:30 Consult to Physician [CONS] Routine Comment: Consulting Provider: PARAS ROMEO Physician Instructions: Reason For Exam: Acute CVA 02/24/22 22:32 Occupational Therapy Evaluate and Treat [CONS] Routine Comment: Reason For Exam: Neuro deficits Physical Therapy Evaluation and Treat [CONS] Routine Comment: Reason For Exam: Neuro deficits Primary care physician: FUDGER Hospitalization Condition: Stable Disposition: 01 HOME / SELF CARE / HOMELESS - Discharge Diagnoses (1) Acute CVA (cerebrovascular accident) Status: Acute (2) Hypertension Status: Chronic Qualifiers: Hypertension type: primary hypertension Qualified Code(s): I10 - Essential (primary) hypertension (3) Hyperlipidemia Status: Chronic Qualifiers: Hyperlipidemia type: mixed hyperlipidemia Qualified Code(s): E78.2 - Mixed hyperlipidemia (4) Cocaine abuse Status: Acute (5) DVT prophylaxis Status: Acute (6) Advance care planning Status: Acute (7) Discharge planning issues Status: Acute Core Measure Documentation - Palliative Care Palliative Care/ Comfort Measures: Not Applicable - Core Measures Any of the following diagnoses?: none Exam - Constitutional Vitals: Temp Pulse Resp BP Pulse Ox 98.5 F 76 16 152/96 99 02/25/22 19:37 02/25/22 19:37 02/25/22 19:37 02/25/22 19:37 02/25/22 19:37 General appearance: Present: no acute distress, well-nourished - EENT Eyes: Present: PERRL ENT: hearing intact, clear oral mucosa - Neck Neck: Present: supple, normal ROM - Respiratory Respiratory effort: normal Respiratory: bilateral: CTA - Cardiovascular Rhythm: regular Heart Sounds: Present: S1 & S2. Absent: rub, click - Extremities Extremities: no ischemia, pulses symmetrical, No edema Peripheral Pulses: within normal limits - Abdominal General gastrointestinal: Present: soft, non-tender, non-distended, normal bowel sounds Male genitourinary: Present: normal - Integumentary Integumentary: Present: clear, warm, dry - Musculoskeletal Musculoskeletal: gait normal, strength equal bilaterally - Psychiatric Psychiatric: appropriate mood/affect, intact judgment & insight - Neurologic Neurologic: CNII-XII intact, moves all extremities Plan Activity: no restrictions Follow up with: PRIMARY CARE, [Primary Care Provider] - 3-5 Days
--- NOTE | 2022-02-26 09:37 | Electrocardiograph Report ---
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 normal variant,consider lateral injury No previous ECG available for comparison Electronically Signed On 02-26-2022 9:37:20 EDT by Nayan Bryant
[2022-02-26] MEDS: amLODIPine 5 MG TAB PO SCH (10:38)
[2022-02-26] MEDS: hydroCHLOROthiazide 25 MG TAB PO SCH (10:39)
[2022-02-26] MEDS: ASPIRIN 325 MG TAB PO SCH (10:39)
[2022-02-26] MEDS: HEPARIN 5,000 UNIT/1 ML VIAL SUB-Q SCH ×2 (10:40→22:18)
[2022-02-26] MEDS: FAMOTIDINE 20 MG TAB PO SCH ×2 (10:40→22:19)
[2022-02-26] MEDS: CLOPIDOGREL 75 MG TAB PO SCH (10:40)
[2022-02-26] MEDS ORDERED: BUPIVACAINE-EPINEPHRINE/PF 0.25%-1:200,000 (30 ML) VIAL INFILTRATI ONE (11:10)
[2022-02-26] MEDS ORDERED: dexAMETHasone 4 MG/ML VIAL ONE (11:10)
[2022-02-27] MEDS: hydroCHLOROthiazide 25 MG TAB PO SCH (09:53)
[2022-02-27] MEDS: HEPARIN 5,000 UNIT/1 ML VIAL SUB-Q SCH (09:54)
[2022-02-27] MEDS: amLODIPine 5 MG TAB PO SCH (09:54)
[2022-02-27] MEDS: ASPIRIN 325 MG TAB PO SCH (09:54)
[2022-02-27] MEDS: CLOPIDOGREL 75 MG TAB PO SCH (09:54)
[2022-02-27] MEDS: FAMOTIDINE 20 MG TAB PO SCH (09:54)
[2022-02-27 17:02] VITALS: BP 140/88
--- NOTE | 2022-02-27 17:04 | Progress Note ---
Assessment and Plan - Patient Problems (1) Acute CVA (cerebrovascular accident) Current Visit: Yes Status: Acute Plan to address problem: CT scan changes on the right side MRI brain to delineate infarct Patient has numbness and weakness in both left and left lower extremities. Weakness is resolved but numbness persists. Possible thalamic infarct. Patient uses cocaine which may be contributory factor. Neurology consult requested. (2) Hypertension Current Visit: Yes Status: Chronic Qualifiers: Hypertension type: primary hypertension Qualified Code(s): I10 - Essential (primary) hypertension Plan to address problem: On losartan (3) Hyperlipidemia Current Visit: Yes Status: Chronic Qualifiers: Hyperlipidemia type: mixed hyperlipidemia Qualified Code(s): E78.2 - Mixed hyperlipidemia Plan to address problem: On high intensity statins (4) Cocaine abuse Current Visit: Yes Status: Acute Plan to address problem: Patient counseled about cocaine use and major contributor of vasospasm (5) DVT prophylaxis Current Visit: Yes Status: Acute Plan to address problem: On heparin and GI prophylaxis (6) Advance care planning Current Visit: Yes Status: Acute Plan to address problem: Disease education conducted, care plan discussed, diagnosis discussed, prognosis discussed. Patient is full code. Patient acknowledges understanding and agreement with care plan. +30 minutes. (7) Discharge planning issues Current Visit: Yes Status: Acute Subjective Date of service: 02/26/22 Objective - Constitutional Vitals: Vital Signs - 12hr 02/27/22 02/27/22 02/27/22 08:00 08:47 08:48 Temperature 97.7 F Pulse Rate 65 Respiratory 18 18 Rate Blood Pressure 147/87 O2 Sat by Pulse 98 99 100 Oximetry 02/27/22 10:00 Temperature Pulse Rate 62 Respiratory Rate Blood Pressure O2 Sat by Pulse Oximetry - Labs CBC & Chem 7: 02/25/22 07:11 02/25/22 07:11 Labs: Abnormal lab results 02/27/22 Range/Units 07:24 Hemoglobin A1c 6.6 H (4-6) % HEART Score - HEART Score Troponin: Troponin T < 0.010 ng/mL (0.00-0.029) 02/24/22 15:56
== END 2022-02-27 18:38 | disposition home or self-care (01) | DRG 66 ==
LOC: ED 12:42 → 4A 22:30
PROVIDERS: ADMIT Internal Medicine; ATTEND Internal Medicine
DX: I63.9 Cerebral infarction, unspecified (principal); F14.10 Cocaine abuse, uncomplicated; I10 Essential (primary) hypertension; E78.2 Mixed hyperlipidemia; Z82.49 Family history of ischemic heart disease and other diseases of the circulatory system; F17.200 Nicotine dependence, unspecified, uncomplicated
CPT/HCPCS: 36415; 70450; 70496; 70498; 70551; 80053; 80061; 80307; 81001; 82550; 82553; 82962; 83036; 84484; 85025; 85610; 85670; 85730; 93005; 93306; 93880; 99406; G0378; J3490; C8929; J1100; J1644; Q9967